=== PATIENT | female | born 1940 | race Caucasian/White ===

== ENCOUNTER 2016-08-21 04:12 | Inpatient (IN) | payer OTHER ==
[~2016-08-21] VITALS: Ht 157.5 cm; Wt 76.2 kg
[~2016-08-21 04:12] MED LIST: /ONDA4TA PO; ASPI81TA85 PO; CALCIUM & VITAMIN D PO; CRES20TA PO; INDA1.252 PO; KLOR10TA5 PO; LISI5TAB PO; METO50TA2 PO; OMEG100011 PO; PRIL40CA PO; [UNRECOGNIZED DRUG - CODE] PO
[2016-08-21 05:10] LABS: BASO % 0.5 % (0.0-1.0); EOS # 0.1 K/mm3 (0.0-0.50); EOS % 3.1 % (0.0-3.0); LARGE UNSTAINED CELL # 0.1 K/mm3 (0.0-0.4); LARGE UNSTAINED CELL % 1.5 % (0.0-4.0); LYMPH % 25.7 % (24.0-44.0); MEAN CORPUSCULAR HEMOGLOBIN 28.7 pg (27.0-33.0); MEAN CORPUSCULAR HGB CONC 35.5 g/dl (32.0-36.5); MEAN CORPUSCULAR VOLUME 80.9 fl (80.0-96.0); MONO # 0.4 K/mm3 (0.0-0.8); MONO % 10.4 % (0.0-5.0); NEUTROPHILS # 2.1 K/mm3 (1.8-7.7); NEUTROPHILS % 58.8 % (36.0-66.0); PLATELET COUNT, AUTOMATED 176 k/mm3 (150-450); WHITE BLOOD COUNT 3.6 K/mm3 (4.0-10.0)
[2016-08-21 05:29] LABS: ALBUMIN 3.4 GM/DL (3.2-5.2); ALBUMIN/GLOBULIN RATIO 0.94 (1.00-1.93); ALKALINE PHOSPHATASE 87 U/L (45-117); ALT/SGPT 28 U/L (12-78); ANION GAP 10 MEQ/L (8-16); AST/SGOT 28 U/L (15-37); BILIRUBIN,DIRECT < 0.1 MG/DL (0.0-0.2); BILIRUBIN,TOTAL 0.5 MG/DL (0.2-1.0); BLOOD UREA NITROGEN 13 MG/DL (7-18); CALCIUM LEVEL 8.8 MG/DL (8.8-10.2); CARBON DIOXIDE LEVEL 25 MEQ/L (21-32); CHLORIDE LEVEL 88 MEQ/L (98-107); CREATININE FOR GFR 1.02 MG/DL (0.55-1.02); GLOMERULAR FILTRATION RATE 56.2 (>39); GLUCOSE, FASTING 102 MG/DL (83-110); POTASSIUM SERUM 3.7 MEQ/L (3.5-5.1); SODIUM LEVEL 123 MEQ/L (136-145)
[2016-08-21] MEDS ORDERED: SUCRALFATE 1 GM TAB As Ordered ONE (07:21)
--- NOTE | 2016-08-21 07:30 | REPUSA ---
CLINICAL HISTORY: RUQ pain. TECHNIQUE: Realtime sonographic images were obtained in multiple projections. COMMENTS: The visualized liver is of uniform increased echo texture without evidence of mass or defect. There i s no intra or extrahepatic biliary ductal dilatation. The common bile duct measures 5.9 mm. The gall bladder is physiologically distended with evidence of calculi. The gallbladder wall is not thickened and there is no pericholecystic fluid. The right kidney measures 11.1x6x4.2 cm. The visualized portions of the pancreas are unremarkable. IMPRESSION: Fatty liver infiltration. Cholelithiasis. Thank you for your kind referral of this patient.
--- NOTE | 2016-08-21 08:08 | REP ---
Clinical: Acute cough . Comparison: 05/22/2013 . Technique: PA and lateral. Findings: The mediastinum and cardiac silhouette are normal. The lung ortiz are clear and without acute consolidation, effusion, or pneumothorax. The skeletal structures are intact and normal. Impression: 1. No acute cardiopulmonary process. Signed by Selvin Sandhu MD 08/21/2016 08:00 A
[2016-08-21] MEDS ORDERED: ONDANSETRON 4MG/2ML VIAL (J2405) IV PRN (08:15)
[2016-08-21] MEDS ORDERED: ACETAMINOPHEN TAB 650MG DOSE (2X325MG) PO PRN (08:15)
[2016-08-21 08:35] LABS: FREE T4 1.27 NG/DL (0.76-1.46); URIC ACID 4.2 MG/DL (2.6-6.0)
[2016-08-21 08:41] LABS: CORTISOL AM 18.9 UG/DL (4.3-22.4)
[2016-08-21] MEDS ORDERED: POTA10CA PO (08:53)
[2016-08-21] MEDS ORDERED: RANI150T PO (08:53)
[2016-08-21] MEDS ORDERED: DILT240C PO (08:53)
[2016-08-21] MEDS ORDERED: METO-207 PO (08:53)
[2016-08-21] MEDS ORDERED: ASPI1TAB PO (08:53)
[2016-08-21] MEDS ORDERED: VITA-112 PO (08:53)
[2016-08-21] MEDS ORDERED: CO Q1CAP PO (08:53)
[2016-08-21] MEDS ORDERED: OMEG100011 PO (08:53)
[2016-08-21] MEDS ORDERED: LISI-538 PO (08:53)
[2016-08-21] MEDS ORDERED: VITA100072 PO (08:53)
[2016-08-21] MEDS ORDERED: INDA125TA PO (08:53)
[2016-08-21] MEDS ORDERED: ROSU40TA PO (08:53)
[2016-08-21] MEDS: OMEGA-3 1050MG CAPSULE PO SCH ×4 (09:00→20:51)
[2016-08-21] MEDS: POTASSIUM CHLORIDE 10 MEQ SR TABLET PO SCH ×4 (09:00→20:52)
[2016-08-21] MEDS: VITAMIN D 1,000 INTERNATIONAL UNITS TABLET PO SCH (09:00)
[2016-08-21] MEDS: CYANOCOBALAMIN 500 MCG TAB PO SCH (09:00)
[2016-08-21] MEDS ORDERED: INDAPAMIDE 1.25MG TABLET PO SCH (09:00)
[2016-08-21] MEDS: ENOXAPARIN 40 MG/0.4 ML SYRINGE (J1650) SC SCH (09:00)
[2016-08-21] MEDS: METOPROLOL SUCC (TopROL XL) 50MG **XL** TAB PO SCH (09:00)
--- NOTE | 2016-08-21 10:06 | ECGEPIP ---
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
--- NOTE | 2016-08-21 10:25 | EDDOCDS ---
Physician Documentation [facility], [place] Name: Jenifer Sawant Age: 75 yrs Sex: Female : 1940 Arrival Date: 08/21/2016 Time: 04:12 Bed 11 Private MD: [facility] Disposition: 08/21/16 08:02 Hospitalization ordered by Nico Carvalho for Inpatient Admission. Preliminary diagnosis is Hypo-osmolality and hyponatremia. - Bed requested for 4 [place]. - Status is Inpatient Admission. hs1 - Condition is Stable. - Problem is new. - Symptoms are unchanged. Historical: - Allergies: Lipitor; antibiotics; - Home Meds: 1. Vitamin D Oral 1,000 unit 2. Co Q-10 100 mg oral cap 3. potassium chloride 10 mEq Oral cpER 1 cap 5 times a day 4. ranitidine HCl 150 mg Oral cap 1 cap once daily 5. indapamide 1.25 mg Oral tab 1 tab once daily 6. aspirin 81 mg Oral tab 1 tab once daily 7. Vitamin B-12 1,000 mcg Oral tab 8. diltiazem HCl 240 mg Oral cpER 1 cap once daily (Last dose: 08/20/2016 08:00) 9. lisinopril 20 mg Oral tab 1 tab once daily (Last dose: 08/20/2016 14:00) 10. metoprolol succinate 100 mg Tb24 1 tab once daily (Last dose: 08/20/2016 10:00) - PMHx: Hypertension; CVA; Hypercholesterolemia; Arthritis; - PSHx: Hysterectomy; Tonsillectomy; Adenoidectomy; - Social history: Smoking status: Patient states former smoker of tobacco. No barriers to communication noted, The patient speaks fluent [place]. - Family history: No immediate family members are acutely ill. - : The pt / caregiver states he / she is not on anticoagulants. Home medication list is obtained from pill bottles. - Exposure Risk Screening:: None identified. Vital Signs: 08/21 04:16 BP 221 / 88 (auto/); kas2 04:17 Pulse 64 MON; Pulse Ox 94% ; kas2 04:20 BP 221 / 88; Pulse 63; Resp 18; Temp 97.6(O); Pulse Ox 96% on R/A; Weight 76.2 kg / kas2 167.99 lbs; Height 5 ft. 2 in. (157.48 cm); Pain 0/10; 04:51 BP 205 / 84 (auto/); kas2 04:52 Pulse 66 MON; Pulse Ox 96% ; kas2 04:59 BP 217 / 93 (auto/); kas2 04:59 Pulse 66 MON; Pulse Ox 96% ; kas2 05:00 BP 189 / 90 RA (man/); Pulse 65; Pain 0/10; kas2 06:34 BP 144 / 65 (auto/); kas2 06:34 Pulse 64 MON; Pulse Ox 95% ; kas2 06:36 Resp 18; Temp 97.6(O); Pain 0/10; kas2 07:05 BP 190 / 75 (auto/); hs1 07:06 Pulse 64 MON; Pulse Ox 97% ; hs1 07:20 BP 166 / 72 (auto/); hs1 07:20 Pulse 60 MON; Pulse Ox 96% ; hs1 07:35 BP 170 / 72 (auto/); hs1 07:35 Pulse 62 MON; Pulse Ox 96% ; hs1 07:49 Pulse 62 MON; Pulse Ox 97% ; hs1 07:50 BP 163 / 70 (auto/); hs1 08:04 Pulse 64 MON; Pulse Ox 96% ; hs1 08:05 BP 187 / 77 (auto/); hs1 08:20 BP 195 / 123 (auto/); hs1 08:20 Pulse 66 MON; Pulse Ox 96% ; hs1 08:22 BP 205 / 82 (auto/); hs1 08:22 Pulse 70 MON; Pulse Ox 95% ; hs1 08:28 BP 197 / 91 (auto/); hs1 08:28 Pulse 68 MON; Pulse Ox 97% ; hs1 08:34 Pulse 72 MON; Pulse Ox 96% ; hs1 08:35 BP 176 / 77 (auto/); hs1 08:50 BP 168 / 71 (auto/); hs1 09:20 BP 153 / 65 (auto/); hs1 09:20 Pulse 64 MON; Pulse Ox 95% ; hs1 09:35 BP 162 / 66 (auto/); hs1 09:35 Pulse 60 MON; Pulse Ox 96% ; hs1 09:54 BP 150 / 69 (auto/); hs1 09:54 BP 150 / 69; Pulse 68 MON; Resp 18; Temp 98.8(TE); Pulse Ox 97% ; Pain 0/10; hs1 10:05 BP 163 / 70 (auto/); hs1 10:05 Pulse 62 MON; Pulse Ox 96% ; hs1 04:20 Body Mass Index 30.73 (76.20 kg, 157.48 cm) kas2 MDM: 04:37 IV Saline Lock ordered. br1 04:37 Pelt Grader/Pulse Ox/q 30 min VS ordered. br1 04:37 Misc. Nursing Order ordered. br1 04:37 CBC with Diff Ordered. EDMS 04:37 BMP Ordered. EDMS 04:37 Liver Profile Ordered. EDMS 04:37 Lipase Ordered. EDMS 04:37 Troponin Ordered. EDMS 04:38 ECG WITH READING ER PHYS+CARDIAG ordered. EDMS 04:40 Chest, 2 View (pa\E\lat) Ordered. EDMS 04:43 Diltiazem Extended Release 24 hour Capsule 240 mg PO once ordered. br1 06:29 Ultrasound Abd Limited Ordered. EDMS 06:46 CBC with Diff Reviewed. br1 06:46 BMP Reviewed. br1 06:46 Liver Profile Reviewed. br1 06:46 Lipase Reviewed. br1 06:46 Troponin Reviewed. br1 06:47 NS 0.9% 1000 ml IV at 150 mL/hr continuous ordered. br1 06:48 Osmolality, Serum Ordered. EDMS 07:21 Sucralfate 1 grams PO once ordered. sd1 07:22 Sucralfate 1 grams PO once ordered. hs1 07:48 BED REQUEST+ADM ordered. EDMS 07:52 Financial registration complete. mm15 08:02 OSMOLALITY,URINE Ordered. EDMS 08:02 SODIUM,RANDOM URINE Ordered. EDMS 08:09 CORTISOL AM Ordered. EDMS 08:09 FREE T3 Ordered. EDMS 08:09 FT4&TSH PANEL Ordered. EDMS 08:09 URIC ACID Ordered. EDMS 08:23 Admission / Observation Status ordered. EDMS 08:23 REGULAR DIET ordered. EDMS 08:23 BASIC METABOLIC PROFILE Ordered. EDMS 08:24 BASIC METABOLIC PROFILE Ordered. EDMS 08:24 RESPIRATORY PANEL Ordered. EDMS 08:24 INFLUENZA A&B RAPID ANTIGEN Ordered. EDMS 08:34 [facility] Payment Agreement was scanned into [employer] and attached to record. mm15 10:23 Inpatient Paper MAR was scanned into [employer] and attached to record. lbd Administered Medications: 05:36 Drug: Diltiazem Extended Release 24 hour Capsule 240 mg Route: PO; kas2 07:11 Drug: NS 0.9% 1000 ml [sodium chloride 0.9 % intravenous solution] Route: IV; Rate: 150 hs1 mL/hr; Site: left antecubital; 10:03 Follow up: IV Status: Infusion discontinued; IV Intake: 450ml hs1 07:22 Drug: Sucralfate 1 grams [sucralfate 1 gram tablet (1 tabs)] Route: PO; hs1 Signatures: Dispatcher [employer] EDMS Bettye Gibbs MD MD sd1 Yanet Morrow, Patient Services Manager Unit lbd Golden Lang MD MD br1 Belinda Pritchett RN RN hs1 Rosita Thomson RN RN sls1 Kennedy Chavarria mm15 Karen Petersen RN RN [facility] Stormy Huffman RN RN [facility]2 The chart was reviewed and I authenticate all verbal orders and agree with the evaluation and treatment provided.Corrections: (The following items were deleted from the chart) 04:40 04:29 Home Meds: diltiazem HCl 240 mg Oral cpER 1 cap once daily; [place] [address] 04:40 04:29 Home Meds: lisinopril 20 mg Oral tab 1 tab once daily; [place] [address] 04:40 04:29 Home Meds: metoprolol succinate 100 mg Tb24 1 tab once daily; [place] [address] 08:09 08:04 URIC ACID ordered. EDMS EDMS 08:09 08:04 CORTISOL AM ordered. EDMS EDMS 08: 08:04 THYROID STIMULATING HORMONE ordered. EDMS EDMS 08:09 08:04 FREE T3 ordered. EDMS EDMS 08:09 08:04 FREE T4 ordered. EDMS EDMS Attachments: 08:34 [facility] Payment Agreement mm15 MTDD
--- NOTE | 2016-08-21 10:26 | EDDOCDS ---
Nurse's Notes [facility] Name: Jenifer Sawant Age: 75 yrs Sex: Female : 1940 Arrival Date: 08/21/2016 Time: 04:12 Bed 11 Private MD: HI Lenin Mora Diagnosis: Hypo-osmolality and hyponatremia Presentation: 08/21 04:17 Presenting complaint: EMS states: Patient states she has had cold symptoms for a week kas2 accompanied by nausea and vomiting. Denies chest pain or shortness of breath. States she just does not feel well. Adult Sepsis Screening: The patient does not have new or worsening altered mentation. Patient's respiratory rate is less than 22. Systolic blood pressure is greater than 100. Patient has a qSOFA score of 0- Negative Sepsis Screen. Suicide/Homicide risk assessment- the patient denies having any suicidal and/or homicidal ideations and does not present with any other emotional, behavioral or mental health complaints. 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 Transition of care: patient was not received from another setting of care. 04:17 Acuity: FARA Level [facility] 04:17 Method Of Arrival: Ambulance [facility] Triage Assessment: 04:20 General: Appears in no apparent distress, uncomfortable, well nourished, well groomed, kas2 Behavior is appropriate for age, cooperative. Pain: Denies pain. Neurological: Level of Consciousness is awake, alert, Oriented to person, place, time. Cardiovascular: Capillary refill < 3 seconds Heart tones S1 S2 present Rhythm is sinus rhythm No ectopy. Respiratory: Airway is patent Respiratory effort is even, unlabored, Respiratory pattern is regular, symmetrical, Breath sounds are clear bilaterally. GI: Abdomen is obese, Bowel sounds present X 4 quads. Abd is tender to palpation X 4 quads. Derm: Skin is intact, Skin is dry, Skin is pink, warm & dry. Skin temperature is warm. Historical: - Allergies: Lipitor; antibiotics; - Home Meds: 1. Vitamin D Oral 1,000 unit 2. Co Q-10 100 mg oral cap 3. potassium chloride 10 mEq Oral cpER 1 cap 5 times a day 4. ranitidine HCl 150 mg Oral cap 1 cap once daily 5. indapamide 1.25 mg Oral tab 1 tab once daily 6. aspirin 81 mg Oral tab 1 tab once daily 7. Vitamin B-12 1,000 mcg Oral tab 8. diltiazem HCl 240 mg Oral cpER 1 cap once daily (Last dose: 08/20/2016 08:00) 9. lisinopril 20 mg Oral tab 1 tab once daily (Last dose: 08/20/2016 14:00) 10. metoprolol succinate 100 mg Tb24 1 tab once daily (Last dose: 08/20/2016 10:00) - PMHx: Hypertension; CVA; Hypercholesterolemia; Arthritis; - PSHx: Hysterectomy; Tonsillectomy; Adenoidectomy; - Social history: Smoking status: Patient states former smoker of tobacco. No barriers to communication noted, The patient speaks fluent Moroccan. - Family history: No immediate family members are acutely ill. - : The pt / caregiver states he / she is not on anticoagulants. Home medication list is obtained from pill bottles. - Exposure Risk Screening:: None identified. Screenin:23 Screening information is obtained from the patient. Fall risk: No risks identified. kas2 Assistance ADL's: requires no assistance with activities of daily living. Abuse/DV Screen: The patient / caregiver reports he/she is: not in a situation that causes fear, pain or injury. Nutritional screening: No deficits noted. Advance Directives: Currently, there is no health care proxy. There is an active DNR order but there is no copy available at this time. There is no living will. There is no Power of Pipe Bender. Advance Directives: Currently, there is a health care proxy, Teresa Yeunglevi. home support is adequate. Assessment: 04:23 General: See triage note.. kas2 05:46 General: Appears in no apparent distress, comfortable, Behavior is appropriate for age, kas2 cooperative. Pain: Denies pain. Neurological: Level of Consciousness is awake, alert, Oriented to person, place, time. Cardiovascular: Rhythm is sinus rhythm No ectopy. Respiratory: Airway is patent Respiratory effort is even, unlabored, Respiratory pattern is regular, symmetrical, Breath sounds are clear bilaterally. Derm: Skin is intact, Skin is dry, Skin is pink, warm & dry. Skin temperature is warm. 06:32 General: Appears in no apparent distress, comfortable, Behavior is appropriate for age, kas2 cooperative. Pain: Denies pain. Neurological: Level of Consciousness is awake, alert, Oriented to person, place, time. Cardiovascular: Rhythm is sinus rhythm No ectopy. Respiratory: Airway is patent Respiratory effort is even, unlabored, Respiratory pattern is regular, symmetrical. Derm: Skin is intact, Skin is dry, Skin is pink, warm & dry. Skin temperature is warm. 06:51 General: Patient gone to US via stretcher with tech.. kas2 07:15 General: Appears in no apparent distress, Behavior is appropriate for age, cooperative. hs1 Pain: Quality of pain is described as burning, throat - patient states heart burn. Cardiovascular: Rhythm is sinus rhythm No ectopy. Respiratory: Airway is patent Respiratory effort is even, unlabored, Respiratory pattern is regular, symmetrical, Breath sounds are clear bilaterally. Derm: Skin is pink, warm & dry. normal. 08:35 General: Appears in no apparent distress, comfortable, Behavior is appropriate for age, hs1 cooperative, patient aware of admission due to low sodium level. Patient has tolerated breakfast well. No other complaints voiced at this time. Patient states heartburn has decreased. . Pain: Denies pain. Respiratory: Airway is patent Respiratory effort is even, unlabored, Respiratory pattern is regular, symmetrical. Derm: Skin is pink, warm & dry. normal. 09:10 Reassessment: Patient appears in no apparent distress at this time. patient resting hs1 awaiting admission physicians orders. . 10:03 General: Appears in no apparent distress, comfortable, Behavior is appropriate for age, hs1 cooperative, Medications administered per orders. Patient aware of admission and is awaiting transfer to floor at this time. Patient continues to deny pain and is resting comfortably. . Vital Signs: 04:16 BP 221 / 88 (auto/); kas2 04:17 Pulse 64 MON; Pulse Ox 94% ; kas2 04:20 BP 221 / 88; Pulse 63; Resp 18; Temp 97.6(O); Pulse Ox 96% on R/A; Weight 76.2 kg; [facility] Height 5 ft. 2 in. (157.48 cm); Pain 0/10; 04:51 BP 205 / 84 (auto/); kas2 04:52 Pulse 66 MON; Pulse Ox 96% ; kas2 04:59 BP 217 / 93 (auto/); kas2 04:59 Pulse 66 MON; Pulse Ox 96% ; [facility] 05:00 BP 189 / 90 RA (man/); Pulse 65; Pain 0/10; kas2 06:34 BP 144 / 65 (auto/); kas2 06:34 Pulse 64 MON; Pulse Ox 95% ; kas2 06:36 Resp 18; Temp 97.6(O); Pain 0/10; kas2 07:05 BP 190 / 75 (auto/); hs1 07:06 Pulse 64 MON; Pulse Ox 97% ; hs1 07:20 BP 166 / 72 (auto/); hs1 07:20 Pulse 60 MON; Pulse Ox 96% ; hs1 07:35 BP 170 / 72 (auto/); hs1 07:35 Pulse 62 MON; Pulse Ox 96% ; hs1 07:49 Pulse 62 MON; Pulse Ox 97% ; hs1 07:50 BP 163 / 70 (auto/); hs1 08:04 Pulse 64 MON; Pulse Ox 96% ; hs1 08:05 BP 187 / 77 (auto/); hs1 08:20 BP 195 / 123 (auto/); hs1 08:20 Pulse 66 MON; Pulse Ox 96% ; hs1 08:22 BP 205 / 82 (auto/); hs1 08:22 Pulse 70 MON; Pulse Ox 95% ; hs1 08:28 BP 197 / 91 (auto/); hs1 08:28 Pulse 68 MON; Pulse Ox 97% ; hs1 08:34 Pulse 72 MON; Pulse Ox 96% ; hs1 08:35 BP 176 / 77 (auto/); hs1 08:50 BP 168 / 71 (auto/); hs1 09:20 BP 153 / 65 (auto/); hs1 09:20 Pulse 64 MON; Pulse Ox 95% ; hs1 09:35 BP 162 / 66 (auto/); hs1 09:35 Pulse 60 MON; Pulse Ox 96% ; hs1 09:54 BP 150 / 69 (auto/); hs1 09:54 BP 150 / 69; Pulse 68 MON; Resp 18; Temp 98.8(TE); Pulse Ox 97% ; Pain 0/10; hs1 10:05 BP 163 / 70 (auto/); hs1 10:05 Pulse 62 MON; Pulse Ox 96% ; hs1 04:20 Body Mass Index 30.73 (76.20 kg, 157.48 cm) [facility] Vitals: 04:20 Log In Time N/A - ambulance arrival. kas2 ED Course: 04:13 Patient visited by Johnathan Jones PCA. kb5 04:13 Patient moved to Waiting kb5 04:14 [facility], Mora is Private Physician. kb5 04:14 Stormy Huffman RN is Primary Nurse. kb5 04:14 Patient moved to 11 kb5 04:19 Triage Initiated kas2 04:24 Patient visited by Stormy Huffman RN. kas2 04:28 Golden Lang MD is Attending Physician. br1 04:34 Patient visited by Golden Lang MD. br1 04:40 Patient moved to Radiology maite 05:01 Inserted saline lock: 20 gauge in left antecubital area and blood collected. The kas2 patient tolerated the procedure well. No procedures done that require assistance. 05:01 EKG done. (by ED staff). Reviewed by Golden Lang MD. rn1 05:01 CBC with Diff Sent. kas2 05:01 BMP Sent. kas2 05:01 Liver Profile Sent. kas2 05:01 Lipase Sent. kas2 05:01 Troponin Sent. kas2 05:02 Patient visited by Stormy Huffman RN. kas2 05:02 event planning intern on. Pulse ox on. NIBP on. kas2 05:36 Patient visited by Stormy Huffman RN. kas2 05:48 Patient visited by Stormy Huffman RN. kas2 06:30 Patient moved to 11 maite 06:35 Patient visited by Stormy Huffman RN. kas2 06:36 Patient visited by Stormy Huffman RN. kas2 06:46 Patient visited by Stormy Huffman RN. kas2 06:47 Patient moved to Ultrasound ssc 06:51 Patient visited by Stormy Huffman RN. kas2 06:52 Osmolality, Serum Sent. kas2 06:57 Patient visited by Stormy Huffman RN. kas2 07:12 Attending Physician role handed off by Golden Lang MD sd1 07:12 Bettye Gibbs MD is Attending Physician. sd1 07:15 Patient moved to 11 ssc 07:46 Patient visited by Belinda Pritchett RN. hs1 07:47 Patient visited by Belinda Pritchett RN. hs1 07:57 Patient visited by Madeline Haas. cmb 07:57 Assisted to bathroom. cmb 08:01 Nico Carvalho is Hospitalizing Provider. sd1 08:03 Ultrasound Abd Limited Returned. EDMS 08:05 Primary Nurse role handed off by Stormy Huffman RN mlb1 08:34 [facility] Payment Agreement was scanned into [employer] and attached to record. mm15 08:44 Chest, 2 View (pa\E\lat) Returned. EDMS 09:10 The patient / caregiver is instructed regarding the plan of care and ED course. hs1 09:24 Patient visited by Belinda Pritchett RN. hs1 09:47 Patient visited by Madeline Haas. cmb 09:47 Assisted to bathroom. cmb 10:23 Inpatient Paper MAR was scanned into [employer] and attached to record. lbd Administered Medications: 05:36 Drug: Diltiazem Extended Release 24 hour Capsule 240 mg Route: PO; [facility] 07:11 Drug: NS 0.9% 1000 ml [sodium chloride 0.9 % intravenous solution] Route: IV; Rate: 150 hs1 mL/hr; Site: left antecubital; 10:03 Follow up: IV Status: Infusion discontinued; IV Intake: 450ml hs1 07:22 Drug: Sucralfate 1 grams [sucralfate 1 gram tablet (1 tabs)] Route: PO; hs1 Attachments: 10:23 Inpatient Paper MAR lbd Intake: 10:03 IV: 450.00ml; Total: 450.00ml. hs1 Order Results: Lab Order: CBC with Diff; SPEC'M 08/21/16 04:58 Test: WHITE BLOOD COUNT; Value: 3.6; Range: 4.0-10.0; Abnormal: Below low normal; Units: K/mm3; Status: F Test: RED BLOOD COUNT; Value: 4.95; Range: 4.00-5.40; Units: M/mm3; Status: F Test: HEMOGLOBIN; Value: 14.2; Range: 12.0-16.0; Units: g/dl; Status: F Test: HEMATOCRIT; Value: 40.0; Range: 36.0-47.0; Units: %; Status: F Test: MEAN CORPUSCULAR VOLUME; Value: 80.9; Range: 80.0-96.0; Units: fl; Status: F Test: MEAN CORPUSCULAR HEMOGLOBIN; Value: 28.7; Range: 27.0-33.0; Units: pg; Status: F Test: MEAN CORPUSCULAR HGB CONC; Value: 35.5; Range: 32.0-36.5; Units: g/dl; Status: F Test: RED CELL DISTRIBUTION WIDTH; Value: 13.0; Range: 11.5-14.5; Units: %; Status: F Test: PLATELET COUNT, AUTOMATED; Value: 176; Range: 150-450; Units: k/mm3; Status: F Test: NEUTROPHILS %; Value: 58.8; Range: 36.0-66.0; Units: %; Status: F Test: LYMPH %; Value: 25.7; Range: 24.0-44.0; Units: %; Status: F Test: MONO %; Value: 10.4; Range: 0.0-5.0; Abnormal: Above high normal; Units: %; Status: F Test: EOS %; Value: 3.1; Range: 0.0-3.0; Abnormal: Above high normal; Units: %; Status: F Test: BASO %; Value: 0.5; Range: 0.0-1.0; Units: %; Status: F Test: LARGE UNSTAINED CELL %; Value: 1.5; Range: 0.0-4.0; Units: %; Status: F Test: NEUTROPHILS #; Value: 2.1; Range: 1.8-7.7; Units: K/mm3; Status: F Test: LYMPH #; Value: 1.0; Range: 1.5-4.5; Abnormal: Below low normal; Units: K/mm3; Status: F Test: MONO #; Value: 0.4; Range: 0.0-0.8; Units: K/mm3; Status: F Test: EOS #; Value: 0.1; Range: 0.0-0.50; Units: K/mm3; Status: F Test: BASO #; Value: 0.0; Range: 0.0-0.2; Units: K/mm3; Status: F Test: LARGE UNSTAINED CELL #; Value: 0.1; Range: 0.0-0.4; Units: K/mm3; Status: F Lab Order: [facility]; SPEC08/21/16 04:58 Test: GLUCOSE, FASTING; Value: 102; Range: 83-110; Units: MG/DL; Status: F Test: BLOOD UREA NITROGEN; Value: 13; Range: 7-18; Units: MG/DL; Status: F Test: CREATININE FOR GFR; Value: 1.02; Range: 0.55-1.02; Units: MG/DL; Status: F Test: GLOMERULAR FILTRATION RATE; Value: 56.2; Range: >39; Status: F Test: SODIUM LEVEL; Value: 123; Range: 136-145; Abnormal: Below low normal; Units: MEQ/L; Status: F Test: POTASSIUM SERUM; Value: 3.7; Range: 3.5-5.1; Units: MEQ/L; Status: F Test: CHLORIDE LEVEL; Value: 88; Range: 98-107; Abnormal: Below low normal; Units: MEQ/L; Status: F Test: CARBON DIOXIDE LEVEL; Value: 25; Range: 21-32; Units: MEQ/L; Status: F Test: ANION GAP; Value: 10; Range: 8-16; Units: MEQ/L; Status: F Test: CALCIUM LEVEL; Value: 8.8; Range: 8.8-10.2; Units: MG/DL; Status: F Test Note: ; Units are mL/min/1.73 m2 Chronic Kidney Disease Staging per NKF: Stage I & II GFR >=60 Normal to Mildly Decreased Stage III GFR 30-59 Moderately Decreased Stage IV GFR 15-29 Severely Decreased Stage V GFR <15 Very Little GFR Left ESRD GFR <15 on [employer] Lab Order: Liver Profile; [facility]08/21/16 04:58 Test: AST/SGOT; Value: 28; Range: 15-37; Units: U/L; Status: F Test: ALT/SGPT; Value: 28; Range: 12-78; Units: U/L; Status: F Test: ALKALINE PHOSPHATASE; Value: 87; Range: 45-117; Units: U/L; Status: F Test: BILIRUBIN,TOTAL; Value: 0.5; Range: 0.2-1.0; Units: MG/DL; Status: F Test: BILIRUBIN,DIRECT; Value: < 0.1; Range: 0.0-0.2; Units: MG/DL; Status: F Test: TOTAL PROTEIN; Value: 7.0; Range: 6.4-8.2; Units: GM/DL; Status: F Test: ALBUMIN; Value: 3.4; Range: 3.2-5.2; Units: GM/DL; Status: F Test: ALBUMIN/GLOBULIN RATIO; Value: 0.94; Range: 1.00-1.93; Abnormal: Below low normal; Status: F Lab Order: Lipase; 08/21/16 04:58 Test: LIPASE; Value: 296; Range: 73-393; Units: U/L; Status: F Lab Order: Troponin; 08/21/16 04:58 Test: TROPONIN I; Value: < 0.02; Range: < 0.10; Units: NG/ML; Status: F Test Note: ; Troponin I Reference Interval for BrainSINS LOCI: 99th Percentile= 0.00-0.045 ng/ml Risk Stratification: <= 0.10 ng/ml Decreased Risk for Adverse Clinical Events. 0.10-1.50 ng/ml Increased Risk for Adverse Clinical Events. Evaluation of additional criterion and/or repeat testing in 2-6 hours is suggested to rule out myocardial damage. >= 1.50 ng/ml Indicative of Myocardial Injury. Lab Order: Osmolality, Serum; 08/21/16 04:57 Test: OSMOLALITY SERUM; Value: 256; Range: 280-301; Abnormal: Below low normal; Units: MOSM/KG; Status: F Lab Order: CORTISOL AM; 08/21/16 04:57 Test: CORTISOL AM; Value: 18.9; Range: 4.3-22.4; Units: UG/DL; Status: F Lab Order: FREE T3; 08/21/16 04:58 Test: FREE T3; Value: 2.8; Range: 2.2-4.0; Units: PG/ML; Status: F Lab Order: FT4&TSH PANEL; 08/21/16 04:58 Test: THYROID STIMULATING HORMONE; Value: 2.290; Range: 0.358-3.740; Units: uIU/ML; Status: F Test: FREE T4; Value: 1.27; Range: 0.76-1.46; Units: NG/DL; Status: F Lab Order: URIC ACID; SPEC'M 08/21/16 04:58 Test: URIC ACID; Value: 4.2; Range: 2.6-6.0; Units: MG/DL; Status: F Radiology Order: Chest, 2 View (pa\E\lat) Test: Chest, 2 View (pa\E\lat) REASON FOR EXAMINATION: Cough; Clinical: Acute cough .; ; Comparison: 05/22/2013 .; ; Technique: PA and lateral.; ; Findings:; The mediastinum and cardiac silhouette are normal. The lung ortiz are clear and; without acute consolidation, effusion, or pneumothorax. The skeletal structures; are intact and normal.; ; Impression:; 1. No acute cardiopulmonary process.; ; ; Signed by; Selvin Sandhu MD 08/21/2016 08:00 A; Radiology Order: Ultrasound Abd Limited Test: Ultrasound Abd Limited REASON FOR EXAMINATION: Biliary Colic; ; CLINICAL HISTORY: RUQ pain.; TECHNIQUE: Realtime sonographic images were obtained in multiple projections.; COMMENTS:; The visualized liver is of uniform increased echo texture without evidence of mass or defect. There i; s no intra or extrahepatic biliary ductal dilatation. The common bile duct measures 5.9 mm. The gall; bladder is physiologically distended with evidence of calculi. The gallbladder wall is not thickened; and there is no pericholecystic fluid.; The right kidney measures 11.1x6x4.2 cm.; The visualized portions of the pancreas are unremarkable.; IMPRESSION:; Fatty liver infiltration.; Cholelithiasis.; Thank you for your kind referral of this patient.; ; Outcome: 08:02 Decision to Hospitalize by Provider. sd1 10:17 Discharge Assessment: Patient awake, alert and oriented x 3. No cognitive and/or hs1 functional deficits noted. Patient verbalized understanding of disposition instructions. patient administered narcotics - no. The following High Risk Discharge criteria are identified: None. Admitted to Med/Surg via wheelchair, with chart. Condition: stable. CT Study completed. Admission hand-off: Report called to Felecia ILNK. Property :Personal belongings accompany Pt. 10:24 Patient left the ED. hs1 Signatures: [facility] Bettye Gibbs MD MD sd1 Yanet Morrow, Edger Technician Unit lbd Suleiman, Fabrice Ruiz Michael B RN RN mlb1 Johanthan Jones, TUBE FORMER OPERATOR TUBE FORMER OPERATOR kb5 Golden Lang MD MD br1 Belinda Pritchett RN RN hs1 Rosita Thomson RN RN sls1 Madeline Haas Marlynn mm15 Juan Bennett rn1 Stormy Huffman RN RN kas2 Corrections: (The following items were deleted from the chart) 04:40 04:29 Home Meds: diltiazem HCl 240 mg Oral cpER 1 cap once daily; [facility] 04:40 04:29 Home Meds: lisinopril 20 mg Oral tab 1 tab once daily; [facility] 04:40 04:29 Home Meds: metoprolol succinate 100 mg Tb24 1 tab once daily; [facility]
[2016-08-21 10:30] VITALS: BP 174/74
[2016-08-21 12:32] LABS: CALCIUM LEVEL 8.6 MG/DL (8.8-10.2); CREATININE FOR GFR 1.06 MG/DL (0.55-1.02); GLOMERULAR FILTRATION RATE 53.8 (>39); POTASSIUM SERUM 3.6 MEQ/L (3.5-5.1)
[2016-08-21 12:41] LABS: OSMOLALITY URINE 199 MOSM/KG (500-800)
[2016-08-21] MEDS ORDERED: LISINOPRIL 20 MG TAB PO SCH (13:00)
[2016-08-21] MEDS ORDERED: CALCIUM CARBONATE 500 MG CHEW U/D PO PRN (13:15)
[2016-08-21 14:00] VITALS: BP 140/50
--- NOTE | 2016-08-21 17:10 | HPEPDOC ---
General Date of Admission Aug 21, 2016 at 08:15 Chief Complaint The patient is a 75-year-old female admitted with a reason for visit of Hyponatremia. 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 The patient states that she has been feeling subjective fevers, muscle aches, body aches, and generalized malaise over the last 48 hours. In addition, the patient states that she did have 4 episodes of loose stools yesterday, which have since resolved. She does note, that she lives in the [facility] in [place], [place] where multiple inhabitants have displayed similar symptoms. The patient denies any complaints of headaches, lightheadedness/ dizziness, chest pain, shortness of breath, productive cough, abdominal pain, or any nausea/vomiting. In the ER, the patient's serum sodium level was noted to be 123. There were no other acute notable findings on her lab work and imaging. The patient will be admitted to the hospitalist service for further evaluation and management of her hyponatremia. Home Medications Scheduled (Co Q-10) 100 Mg Cap 100 MG PO DAILY (Reported) (Rosuvastatin Calcium) 40 Mg Tab 40 MG PO QHS (Reported) Aspirin (Aspirin 81) 81 Mg Tab 81 MG PO QHS (Reported) Cholecalciferol (Vitamin D-1000) 1,000 Unit Tab 1,000 UNIT PO DAILY (Reported) Cyanocobalamin (Vitamin B12) 1,000 Mcg Tab 1,000 MCG PO Q2D (Reported) Diltiazem HCl (Diltiazem HCl ER) 240 Mg Cap 240 MG PO DAILY (Reported) TAKES WITH LUNCH Indapamide (Indapamide) 1.25 Mg Tab 1.25 MG PO DAILY (Reported) Lisinopril (Lisinopril) 20 Mg Tab 20 MG PO DAILY (Reported) TAKES AFTER LUNCH Metoprolol Succinate (Metoprolol Succinate ER) 50 Mg Tab 50 MG PO DAILY ( Reported) Wingina 3 Polyunsat Fatty Acids (Wingina 3 1000 mg) 1 Cap Cap 1 CAP PO QID ( Reported) Potassium Chloride (Klor-Con M10) 10 Meq Tabcr 10 MEQ PO 5XD (Reported) Ranitidine HCl (Ranitidine HCl) 150 Mg Tab 1 TAB PO QHS (Reported) SEE COMMENTS Allergies Coded Allergies: Atorvastatin (Verified Allergy, Unknown, MUSCLE PAIN-TAKES CRESTOR AT HOME , 08/21/16) Moxifloxacin (Unverified Allergy, Unknown, UNKNOWN, 08/21/16) Simvastatin (Verified Allergy, Unknown, MUSCLE PAIN, 08/21/16) Omeprazole (Unverified Adverse Reaction, Intermediate, NAUSEA, 08/21/16) Propoxyphene (Verified Adverse Reaction, Unknown, HOT FLASHES, 05/22/13) Past Medical History Medical History As noted in the HPI. Surgical History Hysterectomy, tonsillectomy, adenoidectomy Social History * Smoker: former Smoker Alcohol: denies Drugs: jim Is a resident of [place], [place]. She requires no assistance with activities of daily living. Review of Symptoms Other systems 10 point review of systems is negative unless otherwise specified in HPI. Physical Examination General Exam: Positive: Alert, Cooperative, No Acute Distress ENT Exam: Positive: Atraumatic, Mucous membr. moist/pink Neck Exam: Negative: JVD Chest Exam: Positive: Clear to auscultation, Normal air movement Heart Exam: Positive: Normal S1, Normal S2, Rate Normal Telemetry: Positive: Sinus Abdomen Exam: Positive: Soft, Negative: Tenderness Extremity Exam: Negative: Swelling, Tenderness Vital Signs As noted in EMR Laboratory Data Labs 24H Laboratory Tests 2 08/21/16 04:57: Cortisol AM Sample 18.9, Osmolality 256L 08/21/16 04:58: Aspartate Amino Transf (AST/SGOT) 28, Alanine Aminotransferase (ALT/SGPT) 28, Alkaline Phosphatase 87, Total Bilirubin 0.5, Direct Bilirubin < 0.1, Albumin 3.4, Albumin/Globulin Ratio 0.94L, Anion Gap 10, White Blood Count 3.6L, Red Blood Count 4.95, Hemoglobin 14.2, Hematocrit 40.0, Mean Corpuscular Volume 80.9 , Mean Corpuscular Hemoglobin 28.7, Mean Corpuscular Hemoglobin Concent 35.5, Red Cell Distribution Width 13.0, Platelet Count 176, Neutrophils (%) (Auto) 58.8, Lymphocytes (%) (Auto) 25.7, Monocytes (%) (Auto) 10.4H, Eosinophils (%) ( Auto) 3.1H, Basophils (%) (Auto) 0.5, Neutrophils # (Auto) 2.1, Lymphocytes # ( Auto) 1.0L, Monocytes # (Auto) 0.4, Eosinophils # (Auto) 0.1, Basophils # (Auto ) 0.0, Calcium Level 8.8, Free Thyroxine 1.27, Free Triiodothyronine 2.8, Glomerular Filtration Rate 56.2, Large Unclassified Cells # 0.1, Large Unclassified Cells % 1.5, Lipase 296, Thyroid Stimulating Hormone (TSH) 2.290, Total Protein 7.0, Troponin I < 0.02, Uric Acid 4.2 08/21/16 11:50: Anion Gap 10, Calcium Level 8.6L, Glomerular Filtration Rate 53.8, Blood Urea Nitrogen 12, Creatinine 1.06H, Sodium Level 127L, Potassium Level 3.6, Chloride Level 90L, Carbon Dioxide Level 27 08/21/16 12:04: Urine Random Osmolality 199L, Urine Random Sodium 29 CBC/BMP Laboratory Tests 08/21/16 04:58 Red Blood Count 4.95, Mean Corpuscular Volume 80.9, Mean Corpuscular Hemoglobin 28.7, Mean Corpuscular Hemoglobin Concent 35.5, Red Cell Distribution Width 13.0 , Neutrophils (%) (Auto) 58.8, Lymphocytes (%) (Auto) 25.7, Monocytes (%) (Auto ) 10.4 H, Eosinophils (%) (Auto) 3.1 H, Basophils (%) (Auto) 0.5, Neutrophils # (Auto) 2.1, Lymphocytes # (Auto) 1.0 L, Monocytes # (Auto) 0.4, Eosinophils # ( Auto) 0.1, Basophils # (Auto) 0.0 08/21/16 11:50 Calcium Level 8.6 L Microbiology Microbiology 08/21/16 Respiratory Virus Panel (PCR) ([facility]) - Final, Complete Plan / VTE VTE Prophylaxis Ordered?: Yes Plan Plan Hypovolemic Hyponatremia likely secondary to diarrhea combined with diuretic use We'll admit the patient to med/surg unit Serum sodium noted to be 123 Patient does seem to have a viral prodrome of symptoms with diarrhea, which has led her to become dehydrated In addition she has been taking indapamide during this time-this medication is not new, and the patient states that she has been taking it for 10+ years The patient denies excess drinking of water, chest x-ray with no notable findings We will provide gentle IV fluid hydration, and hold the patient's diuretic at this time Urine studies with TSH level, cortisol level, and uric acid level ordered We will continue to monitor the patient's serum sodium levels Hypertension Continue current antihypertensive regimen, except for indapamide which we will hold secondary to above CVA with no residual deficits Continue aspirin, statin Dyslipidemia Continue statin Arthritis Continue Tylenol when necessary DVT prophylaxis-JUVENTINO Celis MD Aug 21, 2016 17:10
[2016-08-21 18:33] LABS: CALCIUM LEVEL 8.5 MG/DL (8.8-10.2); CREATININE FOR GFR 1.09 MG/DL (0.55-1.02); GLOMERULAR FILTRATION RATE 52.1 (>39)
[2016-08-21] MEDS: FAMOTIDINE 20 MG TAB PO SCH (20:51)
[2016-08-21] MEDS: ASPIRIN 81 MG ENTERIC TAB PO SCH (20:51)
[2016-08-21] MEDS ORDERED: ROSUVASTATIN 10 MG TAB (CRESTOR) PO SCH (21:00)
[2016-08-21 22:00] VITALS: BP 168/70
[2016-08-21 23:59] LABS: CALCIUM LEVEL 8.4 MG/DL (8.8-10.2); CREATININE FOR GFR 1.26 MG/DL (0.55-1.02); GLOMERULAR FILTRATION RATE 44.1 (>39); POTASSIUM SERUM 4.1 MEQ/L (3.5-5.1)
[2016-08-22] MEDS: POTASSIUM CHLORIDE 10 MEQ SR TABLET PO SCH ×2 (04:56→09:00)
[2016-08-22 05:57] LABS: MEAN CORPUSCULAR HEMOGLOBIN 29.4 pg (27.0-33.0); MEAN CORPUSCULAR HGB CONC 35.6 g/dl (32.0-36.5); MEAN CORPUSCULAR VOLUME 82.5 fl (80.0-96.0); RED CELL DISTRIBUTION WIDTH 13.1 % (11.5-14.5); WHITE BLOOD COUNT 3.9 K/mm3 (4.0-10.0)
[2016-08-22 06:00] VITALS: BP 122/60
[2016-08-22 06:09] LABS: CALCIUM LEVEL 8.9 MG/DL (8.8-10.2); CREATININE FOR GFR 1.31 MG/DL (0.55-1.02); GLOMERULAR FILTRATION RATE 42.1 (>39); POTASSIUM SERUM 4.4 MEQ/L (3.5-5.1)
[2016-08-22] MEDS ORDERED: SODIUM CHLORIDE IV ONE (07:00)
[2016-08-22] MEDS ORDERED: D5W IV ONE (07:00)
[2016-08-22] MEDS: VITAMIN D 1,000 INTERNATIONAL UNITS TABLET PO SCH (08:29)
[2016-08-22] MEDS: OMEGA-3 1050MG CAPSULE PO SCH ×4 (08:29→20:40)
[2016-08-22] MEDS: ENOXAPARIN 40 MG/0.4 ML SYRINGE (J1650) SC SCH (08:30)
[2016-08-22] MEDS: METOPROLOL SUCC (TopROL XL) 50MG **XL** TAB PO SCH (08:30)
[2016-08-22] MEDS ORDERED: ATORVASTATIN 20 MG TAB PO SCH (09:00)
--- NOTE | 2016-08-22 10:15 | IPNPDOC ---
Subjective Date Seen The patient was seen on 08/22/16. Subjective Chief Complaint/HPI The patient is a 75-year-old female admitted with a reason for visit of Hyponatremia. General: Denies: Chills, Night Sweats Constitutional: Denies: Chills, Fever Eyes: Denies: Pain, Vision change ENT: Denies: Ear Pain, Head Aches Skin: Denies: Lesions, Rash Pulmonary: Denies: Cough, Dyspnea Cardiovascular: Denies: Chest Pain, Palpitations Gastrointestinal: Denies: Abdominal Pain, Nausea, Vomiting Genitourinary: Denies: Dysuria, Frequency Hematologic: Denies: Bleeding Excessively, Bruising Objective Physical Examination General Exam: Positive: Alert, Cooperative, No Acute Distress ENT Exam: Positive: Atraumatic, Mucous membr. moist/pink Neck Exam: Negative: JVD Chest Exam: Positive: Clear to auscultation, Normal air movement Heart Exam: Positive: Normal S1, Normal S2, Rate Normal Telemetry: Positive: Sinus Abdomen Exam: Positive: Soft, Negative: Tenderness Extremity Exam: Negative: Swelling, Tenderness Assessment /Plan Plan/VTE VTE Prophylaxis Ordered?: Yes Plan Hypovolemic Hyponatremia likely secondary to diarrhea combined with diuretic use Patient's serum sodium has trended upwards appropriately over the last 24 hours. She states that she is feeling much better today and denies any other acute complaints Urine studies with TSH, cortisol, and uric acid levels noted to be within normal limits We will continue to monitor the patient's serum sodium levels Chronic kidney disease Patient's serum creatinine appears to be at baseline (baseline creatinine appears to be between 1.1-1.3) Hypertension Continue current antihypertensive regimen, we will restart the patient's indapamide tomorrow once her sodium levels have stabilized. CVA with no residual deficits Continue aspirin, statin Dyslipidemia Continue statin Arthritis Continue Tylenol when necessary DVT prophylaxis-Lovenox Disposition-anticipate discharge in 24 hours, once the sodium levels have stabilized. VS, I&O, 24H, Fishbone Vital Signs/I&O Vital Signs Date Time Temp Pulse Resp B/P Pulse Ox O2 Delivery O2 Flow Rate FiO2 08/22/16 08:44 Room Air 08/22/16 08:30 58 156/70 08/22/16 06:00 98.6 18 94 I&O- Last 24 Hours up to 6 AM 08/22/16 05:59 Intake Total 1020 ml Output Total 0 ml Balance 1020 ml Laboratory Data 24H LABS Laboratory Tests 2 08/21/16 11:50: Anion Gap 10, Blood Urea Nitrogen 12, Creatinine 1.06H, Sodium Level 127L, Potassium Level 3.6, Chloride Level 90L, Carbon Dioxide Level 27, Calcium Level 8.6L, Glomerular Filtration Rate 53.8 08/21/16 12:04: Urine Random Osmolality 199L, Urine Random Sodium 29 08/21/16 17:58: Anion Gap 9, Blood Urea Nitrogen 15, Creatinine 1.09H, Sodium Level 129L, Potassium Level 4.0, Chloride Level 93L, Carbon Dioxide Level 27, Calcium Level 8.5L, Glomerular Filtration Rate 52.1 08/21/16 23:22: Anion Gap 9, Blood Urea Nitrogen 19H, Creatinine 1.26H, Sodium Level 130L, Potassium Level 4.1, Chloride Level 96L, Carbon Dioxide Level 25, Calcium Level 8.4L, Glomerular Filtration Rate 44.1 08/22/16 05:16: Anion Gap 8, Blood Urea Nitrogen 18, Creatinine 1.31H, Sodium Level 133L, Potassium Level 4.4, Chloride Level 97L, Carbon Dioxide Level 28, Calcium Level 8.9, Glomerular Filtration Rate 42.1 CBC/BMP Laboratory Tests 08/21/16 11:50 Calcium Level 8.6 L 08/21/16 17:58 Calcium Level 8.5 L 08/21/16 23:22 Calcium Level 8.4 L 08/22/16 05:16 Calcium Level 8.9, Red Blood Count 4.43, Mean Corpuscular Volume 82.5, Mean Corpuscular Hemoglobin 29.4, Mean Corpuscular Hemoglobin Concent 35.6, Red Cell Distribution Width 13.1 Microbiology Microbiology 08/21/16 Respiratory Virus Panel (PCR) ([facility]) - Final, Complete JUVENTINO CARPENTER MD Aug 22, 2016 10:15
[2016-08-22 14:00] VITALS: BP 118/63
[2016-08-22] MEDS: FAMOTIDINE 20 MG TAB PO SCH (20:39)
[2016-08-22] MEDS: ASPIRIN 81 MG ENTERIC TAB PO SCH (20:39)
[2016-08-22 20:50] VITALS: BP 158/71
[2016-08-22] MEDS ORDERED: ROSUVASTATIN 10 MG TAB (CRESTOR) PO SCH (21:00)
[2016-08-23 05:50] VITALS: BP 143/73
[2016-08-23 06:27] LABS: MEAN CORPUSCULAR HEMOGLOBIN 29.1 pg (27.0-33.0); MEAN CORPUSCULAR HGB CONC 34.9 g/dl (32.0-36.5); MEAN CORPUSCULAR VOLUME 83.6 fl (80.0-96.0); RED CELL DISTRIBUTION WIDTH 13.3 % (11.5-14.5)
[2016-08-23 06:50] LABS: CALCIUM LEVEL 8.9 MG/DL (8.8-10.2); CREATININE FOR GFR 1.23 MG/DL (0.55-1.02); GLOMERULAR FILTRATION RATE 45.3 (>39); POTASSIUM SERUM 3.9 MEQ/L (3.5-5.1)
[2016-08-23 08:54] VITALS: BP 160/58
[2016-08-23] MEDS: VITAMIN D 1,000 INTERNATIONAL UNITS TABLET PO SCH (08:54)
[2016-08-23] MEDS: OMEGA-3 1050MG CAPSULE PO SCH (08:54)
[2016-08-23] MEDS: CYANOCOBALAMIN 500 MCG TAB PO SCH (08:54)
[2016-08-23] MEDS: METOPROLOL SUCC (TopROL XL) 50MG **XL** TAB PO SCH (08:54)
[2016-08-23] MEDS: ENOXAPARIN 40 MG/0.4 ML SYRINGE (J1650) SC SCH (08:55)
[2016-08-23] MEDS: POTASSIUM CHLORIDE 10 MEQ SR TABLET PO SCH ×2 (08:58→10:22)
--- NOTE | 2016-08-23 11:25 | EDDOCDS ---
Physician Documentation [facility] Name: Jenifer Sawant Age: 75 yrs Sex: Female : 1940 Arrival Date: 08/21/2016 Time: 04:12 Bed 11 Private MD: [facility] Disposition: 08/21/16 08:02 Hospitalization ordered by Nico Carvalho for Inpatient Admission. Preliminary diagnosis is Hypo-osmolality and hyponatremia. - Bed requested for 4 Beatty. - Status is Inpatient Admission. hs1 - Condition is Stable. - Problem is new. - Symptoms are unchanged. Historical: - Allergies: Lipitor; antibiotics; - Home Meds: 1. Vitamin D Oral 1,000 unit 2. Co Q-10 100 mg oral cap 3. potassium chloride 10 mEq Oral cpER 1 cap 5 times a day 4. ranitidine HCl 150 mg Oral cap 1 cap once daily 5. indapamide 1.25 mg Oral tab 1 tab once daily 6. aspirin 81 mg Oral tab 1 tab once daily 7. Vitamin B-12 1,000 mcg Oral tab 8. diltiazem HCl 240 mg Oral cpER 1 cap once daily (Last dose: 08/20/2016 08:00) 9. lisinopril 20 mg Oral tab 1 tab once daily (Last dose: 08/20/2016 14:00) 10. metoprolol succinate 100 mg Tb24 1 tab once daily (Last dose: 08/20/2016 10:00) - PMHx: Hypertension; CVA; Hypercholesterolemia; Arthritis; - PSHx: Hysterectomy; Tonsillectomy; Adenoidectomy; - Social history: Smoking status: Patient states former smoker of tobacco. No barriers to communication noted, The patient speaks fluent [place] Verde[place]. - Family history: No immediate family members are acutely ill. - : The pt / caregiver states he / she is not on anticoagulants. Home medication list is obtained from pill bottles. - Exposure Risk Screening:: None identified. Vital Signs: 08/21 04:16 BP 221 / 88 (auto/); kas2 04:17 Pulse 64 MON; Pulse Ox 94% ; kas2 04:20 BP 221 / 88; Pulse 63; Resp 18; Temp 97.6(O); Pulse Ox 96% on R/A; Weight 76.2 kg / kas2 167.99 lbs; Height 5 ft. 2 in. (157.48 cm); Pain 0/10; 04:51 BP 205 / 84 (auto/); kas2 04:52 Pulse 66 MON; Pulse Ox 96% ; kas2 04:59 BP 217 / 93 (auto/); kas2 04:59 Pulse 66 MON; Pulse Ox 96% ; kas2 05:00 BP 189 / 90 RA (man/); Pulse 65; Pain 0/10; kas2 06:34 BP 144 / 65 (auto/); kas2 06:34 Pulse 64 MON; Pulse Ox 95% ; kas2 06:36 Resp 18; Temp 97.6(O); Pain 0/10; kas2 07:05 BP 190 / 75 (auto/); hs1 07:06 Pulse 64 MON; Pulse Ox 97% ; hs1 07:20 BP 166 / 72 (auto/); hs1 07:20 Pulse 60 MON; Pulse Ox 96% ; hs1 07:35 BP 170 / 72 (auto/); hs1 07:35 Pulse 62 MON; Pulse Ox 96% ; hs1 07:49 Pulse 62 MON; Pulse Ox 97% ; hs1 07:50 BP 163 / 70 (auto/); hs1 08:04 Pulse 64 MON; Pulse Ox 96% ; hs1 08:05 BP 187 / 77 (auto/); hs1 08:20 BP 195 / 123 (auto/); hs1 08:20 Pulse 66 MON; Pulse Ox 96% ; hs1 08:22 BP 205 / 82 (auto/); hs1 08:22 Pulse 70 MON; Pulse Ox 95% ; hs1 08:28 BP 197 / 91 (auto/); hs1 08:28 Pulse 68 MON; Pulse Ox 97% ; hs1 08:34 Pulse 72 MON; Pulse Ox 96% ; hs1 08:35 BP 176 / 77 (auto/); hs1 08:50 BP 168 / 71 (auto/); hs1 09:20 BP 153 / 65 (auto/); hs1 09:20 Pulse 64 MON; Pulse Ox 95% ; hs1 09:35 BP 162 / 66 (auto/); hs1 09:35 Pulse 60 MON; Pulse Ox 96% ; hs1 09:54 BP 150 / 69 (auto/); hs1 09:54 BP 150 / 69; Pulse 68 MON; Resp 18; Temp 98.8(TE); Pulse Ox 97% ; Pain 0/10; hs1 10:05 BP 163 / 70 (auto/); hs1 10:05 Pulse 62 MON; Pulse Ox 96% ; hs1 04:20 Body Mass Index 30.73 (76.20 kg, 157.48 cm) kas2 MDM: 04:37 IV Saline Lock ordered. br1 04:37 Electrical Accessories Assembler/Pulse Ox/q 30 min VS ordered. br1 04:37 Misc. Nursing Order ordered. br1 04:37 CBC with Diff Ordered. EDMS 04:37 BMP Ordered. EDMS 04:37 Liver Profile Ordered. EDMS 04:37 Lipase Ordered. EDMS 04:37 Troponin Ordered. EDMS 04:38 ECG WITH READING ER PHYS+CARDIAG ordered. EDMS 04:40 Chest, 2 View (pa\E\lat) Ordered. EDMS 04:43 Diltiazem Extended Release 24 hour Capsule 240 mg PO once ordered. br1 06:29 Ultrasound Abd Limited Ordered. EDMS 06:46 CBC with Diff Reviewed. br1 06:46 BMP Reviewed. br1 06:46 Liver Profile Reviewed. br1 06:46 Lipase Reviewed. br1 06:46 Troponin Reviewed. br1 06:47 NS 0.9% 1000 ml IV at 150 mL/hr continuous ordered. br1 06:48 Osmolality, Serum Ordered. EDMS 07:21 Sucralfate 1 grams PO once ordered. sd1 07:22 Sucralfate 1 grams PO once ordered. hs1 07:48 BED REQUEST+ADM ordered. EDMS 07:52 Financial registration complete. mm15 08:02 OSMOLALITY,URINE Ordered. EDMS 08:02 SODIUM,RANDOM URINE Ordered. EDMS 08:09 CORTISOL AM Ordered. EDMS 08:09 FREE T3 Ordered. EDMS 08:09 FT4&TSH PANEL Ordered. EDMS 08:09 URIC ACID Ordered. EDMS 08:23 Admission / Observation Status ordered. EDMS 08:23 REGULAR DIET ordered. EDMS 08:23 BASIC METABOLIC PROFILE Ordered. EDMS 08:24 BASIC METABOLIC PROFILE Ordered. EDMS 08:24 RESPIRATORY PANEL Ordered. EDMS 08:24 INFLUENZA A&B RAPID ANTIGEN Ordered. EDMS 08:34 [facility] [place] Payment Agreement was scanned into [employer] and attached to record. mm15 10:23 Inpatient Paper MAR was scanned into [employer] and attached to record. lbd 08/22 20:14 T-Sheet-- Draft Copy was scanned into [employer] and attached to record. klr 20:15 ECG/EKG was scanned into [employer] and attached to record. klr 20:17 PCR was scanned into [employer] and attached to record. klr Administered Medications: 08/21 05:36 Drug: Diltiazem Extended Release 24 hour Capsule 240 mg Route: PO; [facility]2 07:11 Drug: NS 0.9% 1000 ml [sodium chloride 0.9 % intravenous solution] Route: IV; Rate: 150 hs1 mL/hr; Site: left antecubital; 10:03 Follow up: IV Status: Infusion discontinued; IV Intake: 450ml 1 07:22 Drug: Sucralfate 1 grams [sucralfate 1 gram tablet (1 tabs)] Route: PO; hs1 Signatures: Dispatcher [employer] EDMS Bettye Gibbs MD MD sd1 Yanet Morrow, Mortgage Operations Manager Unit [facility] Golden Lang MD MD br1 Belinda Pritchett RN RN hs1 Rosita Thomson RN RN sls1 Kennedy Chavarria mm15 Karen Petersen RN RN sls2 Stormy Huffman RN RN [facility]2 Leena Montoya [facility] The chart was reviewed and I authenticate all verbal orders and agree with the evaluation and treatment provided.Corrections: (The following items were deleted from the chart) 04:40 04:29 Home Meds: diltiazem HCl 240 mg Oral cpER 1 cap once daily; [facility] 04:40 04:29 Home Meds: lisinopril 20 mg Oral tab 1 tab once daily; [facility] 04:40 04:29 Home Meds: metoprolol succinate 100 mg Tb24 1 tab once daily; [facility] 08:09 08:04 URIC ACID ordered. EDMS EDMS 08:09 08:04 CORTISOL AM ordered. EDMS EDMS 08:09 08:04 THYROID STIMULATING HORMONE ordered. EDMS EDMS 08:09 08:04 FREE T3 ordered. EDMS EDMS 08:09 08:04 FREE T4 ordered. EDMS EDMS Attachments: 08:34 [facility] Payment Agreement [email or web address] 08/22 20:14 T-Sheet-- Draft Copy klr 20:15 ECG/EKG klr Chart Complete MTDD
--- NOTE | 2016-08-23 11:25 | EDDOCDS ---
Nurse's Notes [facility] Name: Jenifer Sawant Age: 75 yrs Sex: Female : 1940 Arrival Date: 08/21/2016 Time: 04:12 Bed 11 Private MD: CT Lenin [place] Diagnosis: Hypo-osmolality and hyponatremia Presentation: 08/21 04:17 Presenting complaint: EMS states: Patient states she has had cold symptoms for a week kas2 accompanied by nausea and vomiting. Denies chest pain or shortness of breath. States she just does not feel well. Adult Sepsis Screening: The patient does not have new or worsening altered mentation. Patient's respiratory rate is less than 22. Systolic blood pressure is greater than 100. Patient has a qSOFA score of 0- Negative Sepsis Screen. Suicide/Homicide risk assessment- the patient denies having any suicidal and/or homicidal ideations and does not present with any other emotional, behavioral or mental health complaints. 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 Transition of care: patient was not received from another setting of care. 04:17 Acuity: FARA Level 3 [facility] 04:17 Method Of Arrival: Ambulance [facility] Triage Assessment: 04:20 General: Appears in no apparent distress, uncomfortable, well nourished, well groomed, kas2 Behavior is appropriate for age, cooperative. Pain: Denies pain. Neurological: Level of Consciousness is awake, alert, Oriented to person, place, time. Cardiovascular: Capillary refill < 3 seconds Heart tones S1 S2 present Rhythm is sinus rhythm No ectopy. Respiratory: Airway is patent Respiratory effort is even, unlabored, Respiratory pattern is regular, symmetrical, Breath sounds are clear bilaterally. GI: Abdomen is obese, Bowel sounds present X 4 quads. Abd is tender to palpation X 4 quads. Derm: Skin is intact, Skin is dry, Skin is pink, warm & dry. Skin temperature is warm. Historical: - Allergies: Lipitor; antibiotics; - Home Meds: 1. Vitamin D Oral 1,000 unit 2. Co Q-10 100 mg oral cap 3. potassium chloride 10 mEq Oral cpER 1 cap 5 times a day 4. ranitidine HCl 150 mg Oral cap 1 cap once daily 5. indapamide 1.25 mg Oral tab 1 tab once daily 6. aspirin 81 mg Oral tab 1 tab once daily 7. Vitamin B-12 1,000 mcg Oral tab 8. diltiazem HCl 240 mg Oral cpER 1 cap once daily (Last dose: 08/20/2016 08:00) 9. lisinopril 20 mg Oral tab 1 tab once daily (Last dose: 08/20/2016 14:00) 10. metoprolol succinate 100 mg Tb24 1 tab once daily (Last dose: 08/20/2016 10:00) - PMHx: Hypertension; CVA; Hypercholesterolemia; Arthritis; - PSHx: Hysterectomy; Tonsillectomy; Adenoidectomy; - Social history: Smoking status: Patient states former smoker of tobacco. No barriers to communication noted, The patient speaks fluent Kenyan. - Family history: No immediate family members are acutely ill. - : The pt / caregiver states he / she is not on anticoagulants. Home medication list is obtained from pill bottles. - Exposure Risk Screening:: None identified. Screenin:23 Screening information is obtained from the patient. Fall risk: No risks identified. kas2 Assistance ADL's: requires no assistance with activities of daily living. Abuse/DV Screen: The patient / caregiver reports he/she is: not in a situation that causes fear, pain or injury. Nutritional screening: No deficits noted. Advance Directives: Currently, there is no health care proxy. There is an active DNR order but there is no copy available at this time. There is no living will. There is no Power of Stunner Animal. Advance Directives: Currently, there is a health care proxy, Teresa Yeunglevi. home support is adequate. Assessment: 04:23 General: See triage note.. kas2 05:46 General: Appears in no apparent distress, comfortable, Behavior is appropriate for age, kas2 cooperative. Pain: Denies pain. Neurological: Level of Consciousness is awake, alert, Oriented to person, place, time. Cardiovascular: Rhythm is sinus rhythm No ectopy. Respiratory: Airway is patent Respiratory effort is even, unlabored, Respiratory pattern is regular, symmetrical, Breath sounds are clear bilaterally. Derm: Skin is intact, Skin is dry, Skin is pink, warm & dry. Skin temperature is warm. 06:32 General: Appears in no apparent distress, comfortable, Behavior is appropriate for age, kas2 cooperative. Pain: Denies pain. Neurological: Level of Consciousness is awake, alert, Oriented to person, place, time. Cardiovascular: Rhythm is sinus rhythm No ectopy. Respiratory: Airway is patent Respiratory effort is even, unlabored, Respiratory pattern is regular, symmetrical. Derm: Skin is intact, Skin is dry, Skin is pink, warm & dry. Skin temperature is warm. 06:51 General: Patient gone to US via stretcher with tech.. kas2 07:15 General: Appears in no apparent distress, Behavior is appropriate for age, cooperative. hs1 Pain: Quality of pain is described as burning, throat - patient states heart burn. Cardiovascular: Rhythm is sinus rhythm No ectopy. Respiratory: Airway is patent Respiratory effort is even, unlabored, Respiratory pattern is regular, symmetrical, Breath sounds are clear bilaterally. Derm: Skin is pink, warm & dry. normal. 08:35 General: Appears in no apparent distress, comfortable, Behavior is appropriate for age, hs1 cooperative, patient aware of admission due to low sodium level. Patient has tolerated breakfast well. No other complaints voiced at this time. Patient states heartburn has decreased. . Pain: Denies pain. Respiratory: Airway is patent Respiratory effort is even, unlabored, Respiratory pattern is regular, symmetrical. Derm: Skin is pink, warm & dry. normal. 09:10 Reassessment: Patient appears in no apparent distress at this time. patient resting hs1 awaiting admission physicians orders. . 10:03 General: Appears in no apparent distress, comfortable, Behavior is appropriate for age, hs1 cooperative, Medications administered per orders. Patient aware of admission and is awaiting transfer to floor at this time. Patient continues to deny pain and is resting comfortably. . Vital Signs: 04:16 BP 221 / 88 (auto/); kas2 04:17 Pulse 64 MON; Pulse Ox 94% ; kas2 04:20 BP 221 / 88; Pulse 63; Resp 18; Temp 97.6(O); Pulse Ox 96% on R/A; Weight 76.2 kg; [facility] Height 5 ft. 2 in. (157.48 cm); Pain 0/10; 04:51 BP 205 / 84 (auto/); kas2 04:52 Pulse 66 MON; Pulse Ox 96% ; kas2 04:59 BP 217 / 93 (auto/); kas2 04:59 Pulse 66 MON; Pulse Ox 96% ; [facility] 05:00 BP 189 / 90 RA (man/); Pulse 65; Pain 0/10; kas2 06:34 BP 144 / 65 (auto/); kas2 06:34 Pulse 64 MON; Pulse Ox 95% ; kas2 06:36 Resp 18; Temp 97.6(O); Pain 0/10; kas2 07:05 BP 190 / 75 (auto/); hs1 07:06 Pulse 64 MON; Pulse Ox 97% ; hs1 07:20 BP 166 / 72 (auto/); hs1 07:20 Pulse 60 MON; Pulse Ox 96% ; hs1 07:35 BP 170 / 72 (auto/); hs1 07:35 Pulse 62 MON; Pulse Ox 96% ; hs1 07:49 Pulse 62 MON; Pulse Ox 97% ; hs1 07:50 BP 163 / 70 (auto/); hs1 08:04 Pulse 64 MON; Pulse Ox 96% ; hs1 08:05 BP 187 / 77 (auto/); hs1 08:20 BP 195 / 123 (auto/); hs1 08:20 Pulse 66 MON; Pulse Ox 96% ; hs1 08:22 BP 205 / 82 (auto/); hs1 08:22 Pulse 70 MON; Pulse Ox 95% ; hs1 08:28 BP 197 / 91 (auto/); hs1 08:28 Pulse 68 MON; Pulse Ox 97% ; hs1 08:34 Pulse 72 MON; Pulse Ox 96% ; hs1 08:35 BP 176 / 77 (auto/); hs1 08:50 BP 168 / 71 (auto/); hs1 09:20 BP 153 / 65 (auto/); hs1 09:20 Pulse 64 MON; Pulse Ox 95% ; hs1 09:35 BP 162 / 66 (auto/); hs1 09:35 Pulse 60 MON; Pulse Ox 96% ; hs1 09:54 BP 150 / 69 (auto/); hs1 09:54 BP 150 / 69; Pulse 68 MON; Resp 18; Temp 98.8(TE); Pulse Ox 97% ; Pain 0/10; hs1 10:05 BP 163 / 70 (auto/); hs1 10:05 Pulse 62 MON; Pulse Ox 96% ; hs1 04:20 Body Mass Index 30.73 (76.20 kg, 157.48 cm) [facility] Vitals: 04:20 Log In Time N/A - ambulance arrival. kas2 ED Course: 04:13 Patient visited by Johnathan Jones PCA. kb5 04:13 Patient moved to Waiting kb5 04:14 [facility] [place] is Private Physician. kb5 04:14 Stormy Huffman RN is Primary Nurse. kb5 04:14 Patient moved to 11 kb5 04:19 Triage Initiated kas2 04:24 Patient visited by Stormy Huffman RN. kas2 04:28 Golden Lang MD is Attending Physician. br1 04:34 Patient visited by Golden Lang MD. br1 04:40 Patient moved to Radiology maite 05:01 Inserted saline lock: 20 gauge in left antecubital area and blood collected. The kas2 patient tolerated the procedure well. No procedures done that require assistance. 05:01 EKG done. (by ED staff). Reviewed by Golden Lang MD. rn1 05:01 CBC with Diff Sent. kas2 05:01 BMP Sent. kas2 05:01 Liver Profile Sent. kas2 05:01 Lipase Sent. kas2 05:01 Troponin Sent. kas2 05:02 Patient visited by Stormy Huffman RN. kas2 05:02 case monitor on. Pulse ox on. NIBP on. kas2 05:36 Patient visited by Sotrmy Huffman RN. kas2 05:48 Patient visited by Stormy Huffman RN. kas2 06:30 Patient moved to 11 maite 06:35 Patient visited by Stormy Huffman RN. kas2 06:36 Patient visited by Stormy Huffman RN. kas2 06:46 Patient visited by Stormy Huffman RN. kas2 06:47 Patient moved to Ultrasound ssc 06:51 Patient visited by Stormy Huffman RN. kas2 06:52 Osmolality, Serum Sent. kas2 06:57 Patient visited by Stormy Huffman RN. kas2 07:12 Attending Physician role handed off by Golden Lang MD sd1 07:12 Bettye Gibbs MD is Attending Physician. sd1 07:15 Patient moved to 11 ssc 07:46 Patient visited by Belinda Pritchett RN. hs1 07:47 Patient visited by Belinda Pritchett RN. hs1 07:57 Patient visited by Madeline Haas. cmb 07:57 Assisted to bathroom. cmb 08:01 Nico Carvalho is Hospitalizing Provider. sd1 08:03 Ultrasound Abd Limited Returned. EDMS 08:05 Primary Nurse role handed off by Stormy Huffman,FARIBA mlb1 08:34 [facility] Payment Agreement was scanned into [employer] and attached to record. mm15 08:44 Chest, 2 View (pa\E\lat) Returned. EDMS 09:10 The patient / caregiver is instructed regarding the plan of care and ED course. hs1 09:24 Patient visited by Belinda Pritchett RN. hs1 09:47 Patient visited by Madeline Haas. cmb 09:47 Assisted to bathroom. cmb 10:23 Inpatient Paper MAR was scanned into [employer] and attached to record. lbd 08/22 20:14 T-Sheet-- Draft Copy was scanned into [employer] and attached to record. klr 20:15 ECG/EKG was scanned into [employer] and attached to record. klr 20:17 PCR was scanned into [employer] and attached to record. klr Administered Medications: 08/21 05:36 Drug: Diltiazem Extended Release 24 hour Capsule 240 mg Route: PO; kas2 07:11 Drug: NS 0.9% 1000 ml [sodium chloride 0.9 % intravenous solution] Route: IV; Rate: 150 hs1 mL/hr; Site: left antecubital; 10:03 Follow up: IV Status: Infusion discontinued; IV Intake: 450ml hs1 07:22 Drug: Sucralfate 1 grams [sucralfate 1 gram tablet (1 tabs)] Route: PO; hs1 Attachments: 10:23 Inpatient Paper MAR lbd Intake: 08/21 10:03 IV: 450.00ml; Total: 450.00ml. hs1 Order Results: Lab Order: CBC with Diff; SPEC'M 08/21/16 04:58 Test: WHITE BLOOD COUNT; Value: 3.6; Range: 4.0-10.0; Abnormal: Below low normal; Units: K/mm3; Status: F Test: RED BLOOD COUNT; Value: 4.95; Range: 4.00-5.40; Units: M/mm3; Status: F Test: HEMOGLOBIN; Value: 14.2; Range: 12.0-16.0; Units: g/dl; Status: F Test: HEMATOCRIT; Value: 40.0; Range: 36.0-47.0; Units: %; Status: F Test: MEAN CORPUSCULAR VOLUME; Value: 80.9; Range: 80.0-96.0; Units: fl; Status: F Test: MEAN CORPUSCULAR HEMOGLOBIN; Value: 28.7; Range: 27.0-33.0; Units: pg; Status: F Test: MEAN CORPUSCULAR HGB CONC; Value: 35.5; Range: 32.0-36.5; Units: g/dl; Status: F Test: RED CELL DISTRIBUTION WIDTH; Value: 13.0; Range: 11.5-14.5; Units: %; Status: F Test: PLATELET COUNT, AUTOMATED; Value: 176; Range: 150-450; Units: k/mm3; Status: F Test: NEUTROPHILS %; Value: 58.8; Range: 36.0-66.0; Units: %; Status: F Test: LYMPH %; Value: 25.7; Range: 24.0-44.0; Units: %; Status: F Test: MONO %; Value: 10.4; Range: 0.0-5.0; Abnormal: Above high normal; Units: %; Status: F Test: EOS %; Value: 3.1; Range: 0.0-3.0; Abnormal: Above high normal; Units: %; Status: F Test: BASO %; Value: 0.5; Range: 0.0-1.0; Units: %; Status: F Test: LARGE UNSTAINED CELL %; Value: 1.5; Range: 0.0-4.0; Units: %; Status: F Test: NEUTROPHILS #; Value: 2.1; Range: 1.8-7.7; Units: K/mm3; Status: F Test: LYMPH #; Value: 1.0; Range: 1.5-4.5; Abnormal: Below low normal; Units: K/mm3; Status: F Test: MONO #; Value: 0.4; Range: 0.0-0.8; Units: K/mm3; Status: F Test: EOS #; Value: 0.1; Range: 0.0-0.50; Units: K/mm3; Status: F Test: BASO #; Value: 0.0; Range: 0.0-0.2; Units: K/mm3; Status: F Test: LARGE UNSTAINED CELL #; Value: 0.1; Range: 0.0-0.4; Units: K/mm3; Status: F Lab Order: BMP; SPEC08/21/16 04:58 Test: GLUCOSE, FASTING; Value: 102; Range: 83-110; Units: MG/DL; Status: F Test: BLOOD UREA NITROGEN; Value: 13; Range: 7-18; Units: MG/DL; Status: F Test: CREATININE FOR GFR; Value: 1.02; Range: 0.55-1.02; Units: MG/DL; Status: F Test: GLOMERULAR FILTRATION RATE; Value: 56.2; Range: >39; Status: F Test: SODIUM LEVEL; Value: 123; Range: 136-145; Abnormal: Below low normal; Units: MEQ/L; Status: F Test: POTASSIUM SERUM; Value: 3.7; Range: 3.5-5.1; Units: MEQ/L; Status: F Test: CHLORIDE LEVEL; Value: 88; Range: 98-107; Abnormal: Below low normal; Units: MEQ/L; Status: F Test: CARBON DIOXIDE LEVEL; Value: 25; Range: 21-32; Units: MEQ/L; Status: F Test: ANION GAP; Value: 10; Range: 8-16; Units: MEQ/L; Status: F Test: CALCIUM LEVEL; Value: 8.8; Range: 8.8-10.2; Units: MG/DL; Status: F Test Note: ; Units are mL/min/1.73 m2 Chronic Kidney Disease Staging per NKF: Stage I & II GFR >=60 Normal to Mildly Decreased Stage III GFR 30-59 Moderately Decreased Stage IV GFR 15-29 Severely Decreased Stage V GFR <15 Very Little GFR Left ESRD GFR <15 on FILTER TIP INSPECTOR Lab Order: Liver Profile; SPEC08/21/16 04:58 Test: AST/SGOT; Value: 28; Range: 15-37; Units: U/L; Status: F Test: ALT/SGPT; Value: 28; Range: 12-78; Units: U/L; Status: F Test: ALKALINE PHOSPHATASE; Value: 87; Range: 45-117; Units: U/L; Status: F Test: BILIRUBIN,TOTAL; Value: 0.5; Range: 0.2-1.0; Units: MG/DL; Status: F Test: BILIRUBIN,DIRECT; Value: < 0.1; Range: 0.0-0.2; Units: MG/DL; Status: F Test: TOTAL PROTEIN; Value: 7.0; Range: 6.4-8.2; Units: GM/DL; Status: F Test: ALBUMIN; Value: 3.4; Range: 3.2-5.2; Units: GM/DL; Status: F Test: ALBUMIN/GLOBULIN RATIO; Value: 0.94; Range: 1.00-1.93; Abnormal: Below low normal; Status: F Lab Order: Lipase; 08/21/16 04:58 Test: LIPASE; Value: 296; Range: 73-393; Units: U/L; Status: F Lab Order: Troponin; 08/21/16 04:58 Test: TROPONIN I; Value: < 0.02; Range: < 0.10; Units: NG/ML; Status: F Test Note: ; Troponin I Reference Interval for Siemens WEEZEVENT LOCI: 99th Percentile= 0.00-0.045 ng/ml Risk Stratification: <= 0.10 ng/ml Decreased Risk for Adverse Clinical Events. 0.10-1.50 ng/ml Increased Risk for Adverse Clinical Events. Evaluation of additional criterion and/or repeat testing in 2-6 hours is suggested to rule out myocardial damage. >= 1.50 ng/ml Indicative of Myocardial Injury. Lab Order: Osmolality, Serum; 08/21/16 04:57 Test: OSMOLALITY SERUM; Value: 256; Range: 280-301; Abnormal: Below low normal; Units: MOSM/KG; Status: F Lab Order: CORTISOL AM; 08/21/16 04:57 Test: CORTISOL AM; Value: 18.9; Range: 4.3-22.4; Units: UG/DL; Status: F Lab Order: FREE T3; 08/21/16 04:58 Test: FREE T3; Value: 2.8; Range: 2.2-4.0; Units: PG/ML; Status: F Lab Order: FT4&TSH PANEL; 08/21/16 04:58 Test: THYROID STIMULATING HORMONE; Value: 2.290; Range: 0.358-3.740; Units: uIU/ML; Status: F Test: FREE T4; Value: 1.27; Range: 0.76-1.46; Units: NG/DL; Status: F Lab Order: URIC ACID; SPEC'M 08/21/16 04:58 Test: URIC ACID; Value: 4.2; Range: 2.6-6.0; Units: MG/DL; Status: F Radiology Order: Chest, 2 View (pa\E\lat) Test: Chest, 2 View (pa\E\lat) REASON FOR EXAMINATION: Cough; Clinical: Acute cough .; ; Comparison: 05/22/2013 .; ; Technique: PA and lateral.; ; Findings:; The mediastinum and cardiac silhouette are normal. The lung ortiz are clear and; without acute consolidation, effusion, or pneumothorax. The skeletal structures; are intact and normal.; ; Impression:; 1. No acute cardiopulmonary process.; ; ; Signed by; Selvin Sandhu MD 08/21/2016 08:00 A; Radiology Order: Ultrasound Abd Limited Test: Ultrasound Abd Limited REASON FOR EXAMINATION: Biliary Colic; ; CLINICAL HISTORY: RUQ pain.; TECHNIQUE: Realtime sonographic images were obtained in multiple projections.; COMMENTS:; The visualized liver is of uniform increased echo texture without evidence of mass or defect. There i; s no intra or extrahepatic biliary ductal dilatation. The common bile duct measures 5.9 mm. The gall; bladder is physiologically distended with evidence of calculi. The gallbladder wall is not thickened; and there is no pericholecystic fluid.; The right kidney measures 11.1x6x4.2 cm.; The visualized portions of the pancreas are unremarkable.; IMPRESSION:; Fatty liver infiltration.; Cholelithiasis.; Thank you for your kind referral of this patient.; ; Outcome: 08:02 Decision to Hospitalize by Provider. sd1 10:17 Discharge Assessment: Patient awake, alert and oriented x 3. No cognitive and/or hs1 functional deficits noted. Patient verbalized understanding of disposition instructions. patient administered narcotics - no. The following High Risk Discharge criteria are identified: None. Admitted to Med/Surg via wheelchair, with chart. Condition: stable. CT Study completed. Admission hand-off: Report called to Felecia LINK. Property :Personal belongings accompany Pt. 10:24 Patient left the ED. hs1 Signatures: Dispatcher [employer] EDMS Bettye Gibbs MD MD sd1 Yanet Morrow, Network Project Manager Unit lbd Hugo Bearden Steven ssc Barney, Michael B RN RN mlb1 Johnathan Jones, SWITCH FOREMAN SWITCH FOREMAN kb5 Golden Lang MD MD br1 Belinda Pritchett RN RN hs1 Rosita Thomson RN RN [facility] Madeline Haas Marlynn mm15 Juan Bennett rn1 Stormy HuffmanRN RN [facility] Leena Montoya Corrections: (The following items were deleted from the chart) 04:40 04:29 Home Meds: diltiazem HCl 240 mg Oral cpER 1 cap once daily; [facility] 04:40 04:29 Home Meds: lisinopril 20 mg Oral tab 1 tab once daily; [address] 04:40 04:29 Home Meds: metoprolol succinate 100 mg Tb24 1 tab once daily; [place] [id number] Chart Complete MTDD
--- NOTE | 2016-08-23 11:25 | EDDOCDS ---
Physician Documentation [facility] Name: Jenifer Sawant Age: 75 yrs Sex: Female : 1940 Arrival Date: 08/21/2016 Time: 04:12 Bed 11 Private MD: [facility] Disposition: 08/21/16 08:02 Hospitalization ordered by Nico Carvalho for Inpatient Admission. Preliminary diagnosis is Hypo-osmolality and hyponatremia. - Bed requested for 4 [place]. - Status is Inpatient Admission. hs1 - Condition is Stable. - Problem is new. - Symptoms are unchanged. Historical: - Allergies: Lipitor; antibiotics; - Home Meds: 1. Vitamin D Oral 1,000 unit 2. Co Q-10 100 mg oral cap 3. potassium chloride 10 mEq Oral cpER 1 cap 5 times a day 4. ranitidine HCl 150 mg Oral cap 1 cap once daily 5. indapamide 1.25 mg Oral tab 1 tab once daily 6. aspirin 81 mg Oral tab 1 tab once daily 7. Vitamin B-12 1,000 mcg Oral tab 8. diltiazem HCl 240 mg Oral cpER 1 cap once daily (Last dose: 08/20/2016 08:00) 9. lisinopril 20 mg Oral tab 1 tab once daily (Last dose: 08/20/2016 14:00) 10. metoprolol succinate 100 mg Tb24 1 tab once daily (Last dose: 08/20/2016 10:00) - PMHx: Hypertension; CVA; Hypercholesterolemia; Arthritis; - PSHx: Hysterectomy; Tonsillectomy; Adenoidectomy; - Social history: Smoking status: Patient states former smoker of tobacco. No barriers to communication noted, The patient speaks fluent Jordanian. - Family history: No immediate family members are acutely ill. - : The pt / caregiver states he / she is not on anticoagulants. Home medication list is obtained from pill bottles. - Exposure Risk Screening:: None identified. Vital Signs: 08/21 04:16 BP 221 / 88 (auto/); kas2 04:17 Pulse 64 MON; Pulse Ox 94% ; kas2 04:20 BP 221 / 88; Pulse 63; Resp 18; Temp 97.6(O); Pulse Ox 96% on R/A; Weight 76.2 kg / kas2 167.99 lbs; Height 5 ft. 2 in. (157.48 cm); Pain 0/10; 04:51 BP 205 / 84 (auto/); kas2 04:52 Pulse 66 MON; Pulse Ox 96% ; kas2 04:59 BP 217 / 93 (auto/); kas2 04:59 Pulse 66 MON; Pulse Ox 96% ; kas2 05:00 BP 189 / 90 RA (man/); Pulse 65; Pain 0/10; kas2 06:34 BP 144 / 65 (auto/); kas2 06:34 Pulse 64 MON; Pulse Ox 95% ; kas2 06:36 Resp 18; Temp 97.6(O); Pain 0/10; kas2 07:05 BP 190 / 75 (auto/); hs1 07:06 Pulse 64 MON; Pulse Ox 97% ; hs1 07:20 BP 166 / 72 (auto/); hs1 07:20 Pulse 60 MON; Pulse Ox 96% ; hs1 07:35 BP 170 / 72 (auto/); hs1 07:35 Pulse 62 MON; Pulse Ox 96% ; hs1 07:49 Pulse 62 MON; Pulse Ox 97% ; hs1 07:50 BP 163 / 70 (auto/); hs1 08:04 Pulse 64 MON; Pulse Ox 96% ; hs1 08:05 BP 187 / 77 (auto/); hs1 08:20 BP 195 / 123 (auto/); hs1 08:20 Pulse 66 MON; Pulse Ox 96% ; hs1 08:22 BP 205 / 82 (auto/); hs1 08:22 Pulse 70 MON; Pulse Ox 95% ; hs1 08:28 BP 197 / 91 (auto/); hs1 08:28 Pulse 68 MON; Pulse Ox 97% ; hs1 08:34 Pulse 72 MON; Pulse Ox 96% ; hs1 08:35 BP 176 / 77 (auto/); hs1 08:50 BP 168 / 71 (auto/); hs1 09:20 BP 153 / 65 (auto/); hs1 09:20 Pulse 64 MON; Pulse Ox 95% ; hs1 09:35 BP 162 / 66 (auto/); hs1 09:35 Pulse 60 MON; Pulse Ox 96% ; hs1 09:54 BP 150 / 69 (auto/); hs1 09:54 BP 150 / 69; Pulse 68 MON; Resp 18; Temp 98.8(TE); Pulse Ox 97% ; Pain 0/10; hs1 10:05 BP 163 / 70 (auto/); hs1 10:05 Pulse 62 MON; Pulse Ox 96% ; hs1 04:20 Body Mass Index 30.73 (76.20 kg, 157.48 cm) kas2 MDM: 04:37 IV Saline Lock ordered. br1 04:37 Wrecking Supervisor/Pulse Ox/q 30 min VS ordered. br1 04:37 Misc. Nursing Order ordered. br1 04:37 CBC with Diff Ordered. EDMS 04:37 BMP Ordered. EDMS 04:37 Liver Profile Ordered. EDMS 04:37 Lipase Ordered. EDMS 04:37 Troponin Ordered. EDMS 04:38 ECG WITH READING ER PHYS+CARDIAG ordered. EDMS 04:40 Chest, 2 View (pa\E\lat) Ordered. EDMS 04:43 Diltiazem Extended Release 24 hour Capsule 240 mg PO once ordered. br1 06:29 Ultrasound Abd Limited Ordered. EDMS 06:46 CBC with Diff Reviewed. br1 06:46 BMP Reviewed. br1 06:46 Liver Profile Reviewed. br1 06:46 Lipase Reviewed. br1 06:46 Troponin Reviewed. br1 06:47 NS 0.9% 1000 ml IV at 150 mL/hr continuous ordered. br1 06:48 Osmolality, Serum Ordered. EDMS 07:21 Sucralfate 1 grams PO once ordered. sd1 07:22 Sucralfate 1 grams PO once ordered. hs1 07:48 BED REQUEST+ADM ordered. EDMS 07:52 Financial registration complete. mm15 08:02 OSMOLALITY,URINE Ordered. EDMS 08:02 SODIUM,RANDOM URINE Ordered. EDMS 08:09 CORTISOL AM Ordered. EDMS 08:09 FREE T3 Ordered. EDMS 08:09 FT4&TSH PANEL Ordered. EDMS 08:09 URIC ACID Ordered. EDMS 08:23 Admission / Observation Status ordered. EDMS 08:23 REGULAR DIET ordered. EDMS 08:23 BASIC METABOLIC PROFILE Ordered. EDMS 08:24 BASIC METABOLIC PROFILE Ordered. EDMS 08:24 RESPIRATORY PANEL Ordered. EDMS 08:24 INFLUENZA A&B RAPID ANTIGEN Ordered. EDMS 08:34 [facility] [place] was scanned into [employer] and attached to record. mm15 10:23 Inpatient Paper MAR was scanned into [employer] and attached to record. lbd 08/22 20:14 T-Sheet-- Draft Copy was scanned into [employer] and attached to record. klr 20:15 ECG/EKG was scanned into [employer] and attached to record. klr 20:17 PCR was scanned into [employer] and attached to record. klr Administered Medications: 08/21 05:36 Drug: Diltiazem Extended Release 24 hour Capsule 240 mg Route: PO; [facility] 07:11 Drug: NS 0.9% 1000 ml [sodium chloride 0.9 % intravenous solution] Route: IV; Rate: 150 hs1 mL/hr; Site: left antecubital; 10:03 Follow up: IV Status: Infusion discontinued; IV Intake: 450ml 1 07:22 Drug: Sucralfate 1 grams [sucralfate 1 gram tablet (1 tabs)] Route: PO; hs1 Signatures: Dispatcher [employer] EDMS Bettye Gibbs MD MD sd1 Yanet Morrow, Blending Technician [facility] Golden Lang MD MD br1 Belinda Pritchett RN RN hs1 Rosita Thomson RN RN sls1 Kennedy Chavarria mm15 Karen Petersen RN RN sls2 Stormy Huffman RN RN [facility] Leena Montoya [facility] The chart was reviewed and I authenticate all verbal orders and agree with the evaluation and treatment provided.Corrections: (The following items were deleted from the chart) 04:40 04:29 Home Meds: diltiazem HCl 240 mg Oral cpER 1 cap once daily; [facility] 04:40 04:29 Home Meds: lisinopril 20 mg Oral tab 1 tab once daily; [facility] 04:40 04:29 Home Meds: metoprolol succinate 100 mg Tb24 1 tab once daily; [facility] 08:09 08:04 URIC ACID ordered. EDMS EDMS 08:09 08:04 CORTISOL AM ordered. EDMS EDMS 08:09 08:04 THYROID STIMULATING HORMONE ordered. EDMS EDMS 08:09 08:04 FREE T3 ordered. EDMS EDMS 08:09 08:04 FREE T4 ordered. EDMS EDMS Attachments: 08:34 [facility] Payment Agreement mm15 08/22 20:14 T-Sheet-- Draft Copy klr 20:15 ECG/EKG klr Chart Complete MTDD
--- NOTE | 2016-08-23 16:21 | DS.PDOC ---
Discharge Summary General Date of Admission Aug 21, 2016 at 08:15 Date of Discharge Aug 23, 2016 at 12:18 Discharge Summary PROCEDURES PERFORMED DURING STAY: None. COMPLICATIONS/CHIEF COMPLAINT: Hyponatremia ADMISSION DIAGNOSES: 1. . Hypovolemic hyponatremia 2. . Hypertension 3. . DISCHARGE DIAGNOSES: 1. . Hypovolemic hyponatremia 2. . Pretension 3. . HISTORY OF PRESENT ILLNESS: 75-year-old female with past medical history of hypertension, CVA with no residual deficits, dyslipidemia, and arthritis presented to the ER with a chief complaint of generalized weakness with diarrhea over the last 48 hours. The patient states that she has been feeling subjective fevers, muscle aches, body aches, and generalized malaise over the last 48 hours. In addition, the patient states that she did have 4 episodes of loose stools yesterday, which have since resolved. She does note, that she lives in the [facility] in [place], [place] where multiple inhabitants have displayed similar symptoms. The patient denies any complaints of headaches, lightheadedness/ dizziness, chest pain, shortness of breath, productive cough, abdominal pain, or any nausea/vomiting. In the ER, the patient's serum sodium level was noted to be 123. There were no other acute notable findings on her lab work and imaging. The patient will be admitted to the hospitalist service for further evaluation and management of her hyponatremia. During the course of the patient's stay in the hospital here, she was started on gentle IV fluid hydration. In addition, the patient's indapamide was held given her dehydrated state. It was felt the patient's hypovolemic hyponatremia was secondary to viral diarrhea with a continuation of her diuretic therapy, which caused her sodium level to drop. Over the ensuing 48 hours the patient's serum sodium has trended upward appropriately. She has had no symptoms of any kind of neurological deficits secondary to hyponatremia. At this time, the patient states that she is feeling well, she denies any other complaints of fevers, chills, chest pain, shortness of breath, pain, nausea/vomiting or diarrhea at this time. She reports that she is feeling much better and is ready to go home. DISCHARGE MEDICATIONS: Please see below. ALLERGIES: Please see below. PHYSICAL EXAMINATION ON DISCHARGE: VITAL SIGNS: Please see below. General Exam: Positive: Alert, Cooperative, No Acute Distress ENT Exam: Positive: Atraumatic, Mucous membr. moist/pink Neck Exam: Negative: JVD Chest Exam: Positive: Clear to auscultation, Normal air movement Heart Exam: Positive: Normal S1, Normal S2, Rate Normal Telemetry: Positive: Sinus Abdomen Exam: Positive: Soft, Negative: Tenderness Extremity Exam: Negative: Swelling, Tenderness LABORATORY DATA: Please see below. IMAGING: Clinical: Acute cough . Comparison: 05/22/2013 . Technique: PA and lateral. Findings: The mediastinum and cardiac silhouette are normal. The lung ortiz are clear and without acute consolidation, effusion, or pneumothorax. The skeletal structures are intact and normal. Impression: 1. No acute cardiopulmonary process. VTE Prophylaxis ordered?: Yes DISCHARGE CONDITION: Stable. DISPOSITION: . [facility], in the [facility] ACTIVITY: . As tolerated DIET: . 2 g low sodium diet DISCHARGE PLAN AND INSTRUCTIONS: 1. . Follow-up with primary care physician within one to 2 weeks 2. . 3. . TIME SPENT ON DISCHARGE: Greater than 30 minutes. Vital Signs/I&Os Vital Signs Date Time Temp Pulse Resp B/P Pulse Ox O2 Delivery O2 Flow Rate FiO2 08/23/16 08:54 67 160/58 08/23/16 08:50 Room Air 08/23/16 05:50 97.7 18 96 I&O- Last 24 Hours up to 6 AM 08/23/16 06:00 Intake Total 1600 ml Output Total 1200 ml Balance 400 ml Laboratory Data Labs 24H Laboratory Tests 2 08/23/16 05:39: Anion Gap 9, Blood Urea Nitrogen 19H, Creatinine 1.23H, Sodium Level 138, Potassium Level 3.9, Chloride Level 104, Carbon Dioxide Level 25, Calcium Level 8.9, Glomerular Filtration Rate 45.3 CBC/BMP Laboratory Tests 08/23/16 05:39 Calcium Level 8.9, Red Blood Count 4.32, Mean Corpuscular Volume 83.6, Mean Corpuscular Hemoglobin 29.1, Mean Corpuscular Hemoglobin Concent 34.9, Red Cell Distribution Width 13.3 Microbiology Microbiology 08/21/16 Respiratory Virus Panel (PCR) (ANCA) - Final, Complete Medications Scheduled (Co Q-10) 100 Mg Cap 100 MG PO DAILY (Reported) (Rosuvastatin Calcium) 40 Mg Tab 40 MG PO QHS (Reported) Aspirin (Aspirin 81) 81 Mg Tab 81 MG PO QHS (Reported) Cholecalciferol (Vitamin D-1000) 1,000 Unit Tab 1,000 UNIT PO DAILY (Reported) Cyanocobalamin (Vitamin B12) 1,000 Mcg Tab 1,000 MCG PO Q2D (Reported) Diltiazem HCl (Diltiazem HCl ER) 240 Mg Cap 240 MG PO DAILY (Reported) TAKES WITH LUNCH Indapamide (Indapamide) 1.25 Mg Tab 1.25 MG PO DAILY (Reported) Lisinopril (Lisinopril) 20 Mg Tab 20 MG PO DAILY (Reported) TAKES AFTER LUNCH Metoprolol Succinate (Metoprolol Succinate ER) 50 Mg Tab 50 MG PO DAILY ( Reported) [place] 3 Polyunsat Fatty Acids ([place] 3 1000 mg) 1 Cap Cap 1 CAP PO QID ( Reported) Potassium Chloride (Klor-Con M10) 10 Meq Tabcr 10 MEQ PO 5XD (Reported) Ranitidine HCl (Ranitidine HCl) 150 Mg Tab 1 TAB PO QHS (Reported) SEE COMMENTS Allergies Coded Allergies: Atorvastatin (Verified Allergy, Unknown, MUSCLE PAIN-TAKES CRESTOR AT HOME , 08/21/16) Moxifloxacin (Unverified Allergy, Unknown, UNKNOWN, 08/21/16) Simvastatin (Verified Allergy, Unknown, MUSCLE PAIN, 08/21/16) Omeprazole (Unverified Adverse Reaction, Intermediate, NAUSEA, 08/21/16) Propoxyphene (Verified Adverse Reaction, Unknown, HOT FLASHES, 05/22/13) JUVENTINO CARPENTER MD Aug 23, 2016 16:21
== END 2016-08-23 12:18 | disposition home or self-care (01) | DRG 392 ==
LOC: M ED 04:12 → M ED INP 08:15 → M MSPAV 10:38
PROVIDERS: ADMIT Internal Medicine; ATTEND Internal Medicine
DX: A08.4 Viral intestinal infection, unspecified (principal); E87.1 Hypo-osmolality and hyponatremia; E86.1 Hypovolemia; N18.9 Chronic kidney disease, unspecified; M19.90 Unspecified osteoarthritis, unspecified site; I12.9 Hypertensive chronic kidney disease with stage 1 through stage 4 chronic kidney disease, or unspecified chronic kidney disease; E78.5 Hyperlipidemia, unspecified; Z79.82 Long term (current) use of aspirin; Z79.899 Other long term (current) drug therapy; Z88.8 Allergy status to other drugs, medicaments and biological substances; Z86.73 Personal history of transient ischemic attack (TIA), and cerebral infarction without residual deficits; Z90.710 Acquired absence of both cervix and uterus; Z87.891 Personal history of nicotine dependence

== ENCOUNTER → 2017-02-28 | Outpatient (CLI) | payer OTHER ==
[~2017-02-28] MED LIST changes: +ASPI1TAB PO; +CO Q100C PO; +DILT240C PO; +INDA125TA PO; +LISI-538 PO; +METO1TAB7 PO; +POTA10CA PO; +RANI150T PO; +ROSU40TA PO; +VITA-112 PO; +VITA100072 PO
--- NOTE | 2017-03-04 08:15 | REPMRS ---
Patient History The patient states she has not had a clinical breast exam in over a year. Patient is postmenopausal. Family history of ovarian cancer in mother at age 59 and breast cancer in maternal aunt at age 50 or over. Took hormonal contraceptives for 6 months. Took unspecified hormones for 3 years. Digital Mammo Screening Bilat: February 28, 2017 - Exam #: [id number] Bilateral CC and MLO view(s) were taken. Technologist: Trang Atkins Technologist Prior study comparison: January 11, 2015, bilateral digital mammo screening bilat performed at [facility]. November 18, 2013, digital mammo diagnostic bilateral performed at [facility]. October 22, 2012, bilateral bilat screen digital mammo, performed at [facility] ([facility]). FINDINGS: The breast tissue is almost entirely fat. There has been no change in the appearance of the mammogram from the prior studies. There is no interval development of dominant mass, architectural distortion, or clustered microcalcification typical of malignancy. ASSESSMENT: BI-RADS/ACR category 1 mammogram. Negative. Recommendation Routine screening mammogram of both breasts in 1 year (for women over age 40). This mammogram was interpreted with the aid of an FDA-approved computer-aided dectection system. Electronically Signed By: Saad Moura MD 03/04/17 0815
== END ==
LOC: M RAD 09:01
PROVIDERS: ATTEND Family Medicine
DX: Z12.31 Encounter for screening mammogram for malignant neoplasm of breast (principal)

== ENCOUNTER 2018-08-12 19:31 | Emergency (ER) | payer OTHER ==
[~2018-08-12] VITALS: Ht 157.5 cm; Wt 75.5 kg
[~2018-08-12 19:31] MED LIST changes: -DILT240C PO; +DILT240C47 PO; +KLOR10TA76 PO; -POTA10CA PO; -ROSU40TA PO; +ROSU40TA3 PO
[2018-08-12] MEDS ORDERED: LISI40TA PO (19:43)
[2018-08-13 00:18] LABS: BASO # 0.1 10^3/uL (0.0-0.2); BASO % 0.7 % (0.0-1.0); EOS # 0.3 10^3/uL (0.0-0.50); HEMATOCRIT 43.8 % (36.0-47.0); HEMOGLOBIN 15.5 g/dl (12.0-15.5); LYMPH # 2.1 10^3/uL (1.5-4.5); LYMPH % 21.2 % (24.0-44.0); MEAN CORPUSCULAR HEMOGLOBIN 28.4 pg (27.0-33.0); MEAN CORPUSCULAR HGB CONC 35.4 g/dl (32.0-36.5); MEAN CORPUSCULAR VOLUME 80.4 fl (80.0-96.0); MONO # 0.7 10^3/uL (0.0-0.8); NEUTROPHILS # 6.7 10^3/uL (1.8-7.7); NEUTROPHILS % 67.6 % (36.0-66.0); PLATELET COUNT, AUTOMATED 250 10^3/uL (150-450); RED BLOOD COUNT 5.45 10^6/uL (4.00-5.40); WHITE BLOOD COUNT 9.9 10^3/uL (4.0-10.0)
[2018-08-13 00:42] LABS: BLOOD UREA NITROGEN 23 MG/DL (7-18); CALCIUM LEVEL 9.7 MG/DL (8.8-10.2); CARBON DIOXIDE LEVEL 22 MEQ/L (21-32); CHLORIDE LEVEL 94 MEQ/L (98-107); CPK CREATINE PHOSPHOKINASE 178 U/L (26-192); CREATININE FOR GFR 1.42 MG/DL (0.55-1.30); GLOMERULAR FILTRATION RATE 38.2 (>39); GLUCOSE, FASTING 96 MG/DL (70-100); MB/CK RELATIVE INDEX 1.52 (< OR =4); POTASSIUM SERUM 4.4 MEQ/L (3.5-5.1); SODIUM LEVEL 127 MEQ/L (136-145); TROPONIN I < 0.02 NG/ML (< 0.10)
[2018-08-13] MEDS ORDERED: NS 1,000 ML IV ONE (01:00)
[2018-08-13 03:51] LABS: CALCIUM LEVEL 8.6 MG/DL (8.8-10.2); CREATININE FOR GFR 1.34 MG/DL (0.55-1.30); GLOMERULAR FILTRATION RATE 40.8 (>39); POTASSIUM SERUM 3.9 MEQ/L (3.5-5.1)
[2018-08-13 04:07] VITALS: BP 155/69
--- NOTE | 2018-08-13 07:40 | REP ---
PA and lateral chest: Comparison is a 08/21/2016. The lung ortiz are clear. The cardiac size is normal. The gypsy, mediastinum, and skeletal structures are unremarkable. Impression: Negative PA and lateral chest. There is a electronic device superimposed over the left upper lobe as an interval change. Electronically Signed by Bishop Mccormick MD 08/13/2018 07:32 A
--- NOTE | 2018-08-14 00:43 | ECGEPIP ---
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
== END 2018-08-13 04:21 | disposition home or self-care (01) ==
LOC: M ED 19:31
DX: E87.1 Hypo-osmolality and hyponatremia (principal); I10 Essential (primary) hypertension; E04.1 Nontoxic single thyroid nodule; G43.909 Migraine, unspecified, not intractable, without status migrainosus; N28.9 Disorder of kidney and ureter, unspecified; F41.9 Anxiety disorder, unspecified; F32.9 Major depressive disorder, single episode, unspecified; K57.90 Diverticulosis of intestine, part unspecified, without perforation or abscess without bleeding; Z88.8 Allergy status to other drugs, medicaments and biological substances; Z88.1 Allergy status to other antibiotic agents; Z79.899 Other long term (current) drug therapy; Z79.82 Long term (current) use of aspirin

== ENCOUNTER 2018-09-24 12:22 | Emergency (ER) | payer OTHER ==
[~2018-09-24] VITALS: Ht 157.5 cm; Wt 74.2 kg
[~2018-09-24 12:22] MED LIST changes: -/ONDA4TA PO; -ASPI1TAB PO; +ASPI81TA26 PO; +LISI40TA PO; +ONDA-1 PO; +VITA100018 PO; -VITA100072 PO
[2018-09-24] MEDS ORDERED: diphenhydrAMINE INJ 50MG/ML VIAL (J1200) IV ONE (13:15)
[2018-09-24] MEDS ORDERED: FAMOTIDINE IV BAG 20 MG in APPROPRIATE DILUENT 1 EA IV ONE (13:15)
[2018-09-24] MEDS ORDERED: dexameTHASONE 20 MG/5 ML VIAL (J1100) IV ONE (13:15)
[2018-09-24 13:26] LABS: BASO % 0.5 % (0.0-1.0); EOS # 0.1 10^3/uL (0.0-0.50); HEMATOCRIT 40.9 % (36.0-47.0); HEMOGLOBIN 14.1 g/dl (12.0-15.5); LYMPH # 0.7 10^3/uL (1.5-4.5); MEAN CORPUSCULAR HEMOGLOBIN 28.1 pg (27.0-33.0); MEAN CORPUSCULAR HGB CONC 34.5 g/dl (32.0-36.5); MEAN CORPUSCULAR VOLUME 81.6 fl (80.0-96.0); MONO # 0.6 10^3/uL (0.0-0.8); MONO % 8.3 % (0.0-5.0); NEUTROPHILS # 5.8 10^3/uL (1.8-7.7); NEUTROPHILS % 79.7 % (36.0-66.0); PLATELET COUNT, AUTOMATED 192 10^3/uL (150-450); RED BLOOD COUNT 5.01 10^6/uL (4.00-5.40); WHITE BLOOD COUNT 7.3 10^3/uL (4.0-10.0)
[2018-09-24 13:48] LABS: ALBUMIN 4.1 GM/DL (3.2-5.2); ALT/SGPT 24 U/L (12-78); BILIRUBIN,DIRECT 0.1 MG/DL (0.0-0.2); BILIRUBIN,TOTAL 0.4 MG/DL (0.2-1.0); BLOOD UREA NITROGEN 22 MG/DL (7-18); C REACTIVE PROTEIN QUANTITATIV < 0.30 MG/DL (0.00-0.30); CALCIUM LEVEL 9.6 MG/DL (8.8-10.2); CARBON DIOXIDE LEVEL 23 MEQ/L (21-32); CHLORIDE LEVEL 99 MEQ/L (98-107); CREATININE FOR GFR 1.42 MG/DL (0.55-1.30); GLOMERULAR FILTRATION RATE 38.1 (>39); GLUCOSE, FASTING 96 MG/DL (70-100); POTASSIUM SERUM 3.7 MEQ/L (3.5-5.1); SODIUM LEVEL 133 MEQ/L (136-145); TOTAL PROTEIN 7.1 GM/DL (6.4-8.2)
--- NOTE | 2018-09-24 13:51 | REP ---
PORTABLE CHEST: AP portable view of the chest is performed and compared to a prior study of 08/13/2018 as well as other prior exams. There is bibasilar fibroatelectatic change, which is stable. There is no new infiltrate. The heart is not enlarged. There is calcification of the thoracic aorta. The mediastinal silhouette is unchanged. IMPRESSION: No acute infiltrate. Electronically Signed by Bishop Hudson MD 09/24/2018 01:59 P
[2018-09-24 14:18] LABS: ERYTHROCYTE SEDIMENTATION RATE 7 mm/hr (0-30)
[2018-09-24 16:53] VITALS: BP 152/66
[2018-09-24] MEDS ORDERED: LOSA25TA14 PO (17:06)
[2018-09-24] MEDS ORDERED: DIPH25CA PO (17:06)
[2018-09-24] MEDS ORDERED: PRED20TA PO (17:06)
== END 2018-09-24 17:34 | disposition home or self-care (01) ==
LOC: M ED 12:22
DX: L29.9 Pruritus, unspecified (principal); T78.40XA Allergy, unspecified, initial encounter; I10 Essential (primary) hypertension; E78.5 Hyperlipidemia, unspecified; E78.00 Pure hypercholesterolemia, unspecified; Z86.73 Personal history of transient ischemic attack (TIA), and cerebral infarction without residual deficits; Z79.01 Long term (current) use of anticoagulants; Z87.891 Personal history of nicotine dependence; Z88.8 Allergy status to other drugs, medicaments and biological substances; Z88.1 Allergy status to other antibiotic agents
CPT/HCPCS: 71045; 80048; 80076; 85025; 85652; 86140; 93041; 94760; 96374; 96375; 99285; J1100; J1200

== ENCOUNTER 2018-09-28 12:33 | Emergency (ER) | payer OTHER ==
[~2018-09-28] VITALS: Ht 157.5 cm; Wt 73.9 kg
[~2018-09-28 12:33] MED LIST changes: +DIPH25CA PO; +LOSA25TA14 PO; +PRED20TA PO
--- NOTE | 2018-09-28 13:07 | REP ---
CT Head without contrast HISTORY: Altered mental status COMPARISON: None An area of decreased attenuation is present in the left basal ganglia. This represents an old lacunar infarction. Areas of decreased attenuation are present in the periventricular and subcortical white matter. This represents small-vessel ischemic disease. There is no intraparenchymal hemorrhage, acute infarct, mass or midline shift. The ventricular system and cortical sulci are dilated consistent with mild volume loss. There is no extra cerebral collection. There is no fracture. The visualized sinuses are clear. IMPRESSION: 1. Old left basal ganglia lacunar infarction. 2. Small vessel ischemic disease. 3. Mild volume loss. Electronically Signed by Junior Arias MD 09/28/2018 12:59 P
[2018-09-28 13:25] LABS: VENOUS BASE EXCESS -1.4 (-2.0-2.0); VENOUS HCO3 22.3 MEQ/L (23.0-27.0); VENOUS O2 SATURATION 94.2 % (60.0-80.0); VENOUS PARTIAL PRESSURE CO2 34.9 mmHg (38.0-50.0); VENOUS PH 7.424 UNITS (7.330-7.430); VENOUS STANDARD HCO3 23.3 MEQ/L; VENOUS TOTAL CO2 23.4 MEQ/L (24.0-28.0)
[2018-09-28 14:09] LABS: ALBUMIN 3.9 GM/DL (3.2-5.2); ALT/SGPT 44 U/L (12-78); BILIRUBIN,DIRECT < 0.1 MG/DL (0.0-0.2); BILIRUBIN,TOTAL 0.5 MG/DL (0.2-1.0); BLOOD UREA NITROGEN 27 MG/DL (7-18); CALCIUM LEVEL 9.3 MG/DL (8.8-10.2); CARBON DIOXIDE LEVEL 21 MEQ/L (21-32); CHLORIDE LEVEL 100 MEQ/L (98-107); CPK CREATINE PHOSPHOKINASE 68 U/L (26-192); GLOMERULAR FILTRATION RATE 38.7 (>39); GLUCOSE, FASTING 108 MG/DL (70-100); MB/CK RELATIVE INDEX 2.06 (< OR =4); SODIUM LEVEL 133 MEQ/L (136-145); TOTAL PROTEIN 7.3 GM/DL (6.4-8.2); TROPONIN I < 0.02 NG/ML (< 0.10)
[2018-09-28 14:33] LABS: BASO # 0.1 10^3/uL (0.0-0.2); BASO % 0.4 % (0.0-1.0); EOS # 0.1 10^3/uL (0.0-0.50); EOS % 0.3 % (0.0-3.0); HEMATOCRIT 44.8 % (36.0-47.0); HEMOGLOBIN 14.9 g/dl (12.0-15.5); LYMPH # 1.6 10^3/uL (1.5-4.5); LYMPH % 10.9 % (24.0-44.0); MEAN CORPUSCULAR HEMOGLOBIN 27.6 pg (27.0-33.0); MEAN CORPUSCULAR HGB CONC 33.3 g/dl (32.0-36.5); MONO # 0.7 10^3/uL (0.0-0.8); MONO % 5.1 % (0.0-5.0); NEUTROPHILS # 11.8 10^3/uL (1.8-7.7); NEUTROPHILS % 81.2 % (36.0-66.0); PLATELET COUNT, AUTOMATED 277 10^3/uL (150-450); WHITE BLOOD COUNT 14.5 10^3/uL (4.0-10.0)
[2018-09-28] MEDS ORDERED: NS 500 ML IV ONE (15:15)
[2018-09-28 16:54] VITALS: BP 148/65
--- NOTE | 2018-09-29 21:49 | ECGEPIP ---
Stationary ECG Study [facility] - ED Test Date: 2018-09-28 Pat Name: LYN FLOOD Department: Room: - Gender: F Information Lead: : 1940 Requested By: Bettye Gibbs Order Number: [id number] Reading MD: Evert Hutchins Measurements Intervals [place] Rate: 49 P: 59 CT: 173 QRS: 43 QRSD: 84 T: 45 QT: 468 QTc: 425 Interpretive Statements SINUS BRADYCARDIA NSTTW ABNORMALITIES SIMILAR TO 08/12/18 Electronically Signed On 09-29-2018 21:48:30 EDT by Evert Hutchins
== END 2018-09-28 16:56 | disposition home or self-care (01) ==
LOC: M ED 12:33
DX: R42 Dizziness and giddiness (principal); R00.1 Bradycardia, unspecified; I10 Essential (primary) hypertension; Z79.82 Long term (current) use of aspirin; Z79.899 Other long term (current) drug therapy; Z88.8 Allergy status to other drugs, medicaments and biological substances

== ENCOUNTER 2018-10-02 18:32 | Emergency (ER) | payer OTHER ==
[~2018-10-02] VITALS: Ht 157.5 cm; Wt 72.7 kg
[2018-10-02] MEDS ORDERED: ASPI-255 PO (18:50)
[2018-10-02] MEDS ORDERED: GI COCKTAIL 50ML BTL(HYOSCYAMINE/MAALOX/LIDOCAINE VISCOUS)(1:3:1) PO ONE (19:15)
[2018-10-02 20:38] VITALS: BP 140/66
== END 2018-10-02 20:39 | disposition home or self-care (01) ==
LOC: M ED 18:32
DX: T18.108A Unspecified foreign body in esophagus causing other injury, initial encounter (principal); Y92.9 Unspecified place or not applicable; Y93.9 Activity, unspecified; I10 Essential (primary) hypertension; G43.909 Migraine, unspecified, not intractable, without status migrainosus; R42 Dizziness and giddiness; Z79.82 Long term (current) use of aspirin; Z79.899 Other long term (current) drug therapy; Z88.8 Allergy status to other drugs, medicaments and biological substances